=== PATIENT | female | born 1955 | race Caucasian/White ===

== ENCOUNTER → 2016-02-14 | Outpatient (REF) | payer MEDICARE ==
[2016-02-14 11:42] LABS: INR 2.2; MEAN CORPUSCULAR HEMOGLOBIN 29.2 pg (27.0-33.0); MEAN CORPUSCULAR HGB CONC 32.6 g/dl (32.0-36.5); MEAN CORPUSCULAR VOLUME 89.5 fl (80.0-96.0); RED CELL DISTRIBUTION WIDTH 14.7 % (11.5-14.5); WHITE BLOOD COUNT 4.1 K/mm3 (4.0-10.0)
[2016-02-14 11:59] LABS: CALCIUM LEVEL 8.7 MG/DL (8.8-10.2); CREATININE FOR GFR 1.36 MG/DL (0.55-1.02); GLOMERULAR FILTRATION RATE 42.2 (>45)
== END ==
LOC: M SFHCCLAY 07:11
PROVIDERS: ATTEND Family Medicine
DX: I10 Essential (primary) hypertension (principal); E78.4 Other hyperlipidemia; E03.2 Hypothyroidism due to medicaments and other exogenous substances; E55.9 Vitamin D deficiency, unspecified; Z79.01 Long term (current) use of anticoagulants

== ENCOUNTER → 2016-02-28 | Outpatient (REF) | payer MEDICARE ==
[2016-02-28 11:19] LABS: INR 2.4
== END ==
LOC: M SFHCCLAY 07:27
PROVIDERS: ATTEND Nurse Practitioner Family
DX: Z51.81 Encounter for therapeutic drug level monitoring (principal); Z79.01 Long term (current) use of anticoagulants

== ENCOUNTER → 2016-03-14 | Outpatient (REF) | payer MEDICARE ==
[2016-03-14 11:31] LABS: INR 2.34
== END ==
LOC: M SFHCCLAY 09:20
PROVIDERS: ATTEND Nurse Practitioner Family
DX: Z79.01 Long term (current) use of anticoagulants (principal); Z95.2 Presence of prosthetic heart valve

== ENCOUNTER → 2016-03-29 | Outpatient (REF) | payer MEDICARE ==
[2016-03-29 13:41] LABS: INR 3.12
== END ==
LOC: M SFHCCLAY 12:48
PROVIDERS: ATTEND Nurse Practitioner Family
DX: Z51.81 Encounter for therapeutic drug level monitoring (principal); Z79.01 Long term (current) use of anticoagulants

== ENCOUNTER → 2016-04-12 | Outpatient (REF) | payer MEDICARE ==
[2016-04-12 11:29] LABS: INR 3.85
== END ==
LOC: M SFHCCLAY 08:49
PROVIDERS: ATTEND Nurse Practitioner Family
DX: Z79.01 Long term (current) use of anticoagulants (principal)

== ENCOUNTER → 2016-04-26 | Outpatient (REF) | payer MEDICARE ==
[2016-04-26 11:32] LABS: INR 3.69
== END ==
LOC: M SFHCCLAY 09:08
PROVIDERS: ATTEND Nurse Practitioner Family
DX: Z79.01 Long term (current) use of anticoagulants (principal)

== ENCOUNTER → 2016-05-09 | Outpatient (REF) | payer MEDICARE ==
[2016-05-09 18:24] LABS: INR 4.37
== END ==
LOC: M SFHCCLAY 10:11
PROVIDERS: ATTEND Nurse Practitioner Family
DX: J32.9 Chronic sinusitis, unspecified (principal); Z51.81 Encounter for therapeutic drug level monitoring; Z79.01 Long term (current) use of anticoagulants

== ENCOUNTER → 2016-05-24 | Outpatient (REF) | payer MEDICARE ==
[2016-05-24 12:19] LABS: INR 3.95
== END ==
LOC: M SFHCCLAY 08:10
PROVIDERS: ATTEND Nurse Practitioner Family
DX: Z79.01 Long term (current) use of anticoagulants (principal)

== ENCOUNTER → 2016-06-07 | Outpatient (REF) | payer MEDICARE, SELFPAY ==
[2016-06-07 12:20] LABS: INR 2.76
== END ==
LOC: M SFHCCLAY 07:31
PROVIDERS: ATTEND Nurse Practitioner Family
DX: Z79.01 Long term (current) use of anticoagulants (principal)

== ENCOUNTER → 2016-06-12 | Outpatient (REF) | payer MEDICARE ==
[2016-06-12 11:32] LABS: MEAN CORPUSCULAR HEMOGLOBIN 29.9 pg (27.0-33.0); MEAN CORPUSCULAR HGB CONC 31.9 g/dl (32.0-36.5); MEAN CORPUSCULAR VOLUME 93.9 fl (80.0-96.0); RED CELL DISTRIBUTION WIDTH 15.6 % (11.5-14.5); WHITE BLOOD COUNT 4.3 K/mm3 (4.0-10.0)
[2016-06-12 12:15] LABS: ALBUMIN 3.9 GM/DL (3.2-5.2); ALBUMIN/GLOBULIN RATIO 1.44 (1.00-1.93); BILIRUBIN,TOTAL 0.7 MG/DL (0.2-1.0); CALCIUM LEVEL 8.7 MG/DL (8.8-10.2); CREATININE FOR GFR 1.3 MG/DL (0.55-1.02); GLOMERULAR FILTRATION RATE 44.5 (>45); PERCENT SATURATION 9.8 % (13.2-37.4); POTASSIUM SERUM 4.1 MEQ/L (3.5-5.1); TOTAL PROTEIN 6.6 GM/DL (6.4-8.2)
== END ==
LOC: M SFHCCLAY 07:09
PROVIDERS: ATTEND Nurse Practitioner Family
DX: N28.9 Disorder of kidney and ureter, unspecified (principal); I10 Essential (primary) hypertension; E78.4 Other hyperlipidemia; E03.9 Hypothyroidism, unspecified; E55.9 Vitamin D deficiency, unspecified

== ENCOUNTER → 2016-06-21 | Outpatient (REF) | payer MEDICARE ==
[2016-06-21 11:47] LABS: INR 4.97
== END ==
LOC: M SFHCCLAY 07:39
PROVIDERS: ATTEND Nurse Practitioner Family
DX: Z79.01 Long term (current) use of anticoagulants (principal)

== ENCOUNTER → 2016-07-05 | Outpatient (REF) | payer MEDICARE ==
[2016-07-05 13:38] LABS: INR 5.36
== END ==
LOC: M SFHCCLAY 07:35
PROVIDERS: ATTEND Nurse Practitioner Family
DX: Z79.01 Long term (current) use of anticoagulants (principal)

== ENCOUNTER → 2016-07-10 | Outpatient (REF) | payer MEDICARE ==
[2016-07-10 12:38] LABS: INR 1.76
== END ==
LOC: M SFHCCLAY 07:22
PROVIDERS: ATTEND Nurse Practitioner Family
DX: Z79.01 Long term (current) use of anticoagulants (principal)

== ENCOUNTER → 2016-07-18 | Outpatient (REF) | payer MEDICARE ==
[2016-07-18 12:31] LABS: ALBUMIN 3.8 GM/DL (3.2-5.2); CREATININE FOR GFR 1.22 MG/DL (0.55-1.02); GLOMERULAR FILTRATION RATE 47.9 (>45); POTASSIUM SERUM 4.2 MEQ/L (3.5-5.1)
[2016-07-18 13:47] LABS: INR 4.99
== END ==
LOC: M SFHCCLAY 07:07
PROVIDERS: ATTEND Nurse Practitioner Family
DX: Z79.01 Long term (current) use of anticoagulants (principal); I10 Essential (primary) hypertension

== ENCOUNTER → 2016-07-25 | Outpatient (REF) | payer MEDICARE ==
[2016-07-25 12:11] LABS: INR 3.31
== END ==
LOC: M SFHCCLAY 07:30
PROVIDERS: ATTEND Nurse Practitioner Family
DX: Z51.81 Encounter for therapeutic drug level monitoring (principal); Z79.01 Long term (current) use of anticoagulants

== ENCOUNTER → 2016-08-02 | Outpatient (REF) | payer MEDICARE ==
[2016-08-02 13:15] LABS: INR 4.97
== END ==
LOC: M SFHCCLAY 07:43
PROVIDERS: ATTEND Nurse Practitioner Family
DX: Z79.01 Long term (current) use of anticoagulants (principal)

== ENCOUNTER → 2016-08-16 | Outpatient (REF) | payer MEDICARE ==
[2016-08-16 12:05] LABS: INR 3.85
== END ==
LOC: M SFHCCLAY 07:32
PROVIDERS: ATTEND Nurse Practitioner Family
DX: Z79.01 Long term (current) use of anticoagulants (principal)

== ENCOUNTER → 2016-08-28 | Outpatient (CLI) | payer MEDICARE ==
[~2016-08-28] MED LIST: ISOVUE-370 76% 100ML VIAL (Q9967) As Ordered ONE
--- NOTE | 2016-08-28 11:48 | REP ---
CT of the chest with IV contrast, CT pulmonary angiography: There are no comparison studies. There are no emboli in the pulmonary trunk or central pulmonary arteries. There are no emboli in the pulmonary artery lobe or segment branches. The ascending thoracic aorta is dilated measuring up to 4.6 cm in diameter. There is aortic valve prosthesis. There are no infiltrates. No pleural effusions. There are no masses. Cardiac size is mildly enlarged. There is no pericardial effusion. Upper abdomen: There is a small volume of ascites surrounding the liver and spleen. There is a midline ventral hernia anterior to the left lobe of the liver containing a small volume of ascites. There is reflux of the intravenous contrast into the abdominal vena cava and hepatic veins. Impression: There are no pulmonary emboli. No infiltrates, effusions or masses. Cardiac size is mildly enlarged. The ascending thoracic aorta is dilated. There is a small volume of ascites surrounding the liver and spleen. There is reflux of the intravenous contrast into the abdominal vena cava and hepatic veins. There is a midline ventral hernia in the abdomen anterior to the left lobe of the liver. There is a small volume of ascites in the hernia. Signed by Usman Hernández MD 08/28/2016 11:39 A
== END ==
LOC: M RAD 10:57
PROVIDERS: ATTEND Nurse Practitioner Family
DX: R06.00 Dyspnea, unspecified (principal); J90 Pleural effusion, not elsewhere classified
CPT/HCPCS: 71275; Q9967

== ENCOUNTER → 2016-09-13 | Outpatient (REF) | payer MEDICARE ==
[2016-09-13 11:21] LABS: INR 3.29
== END ==
LOC: M SFHCCLAY 07:36
PROVIDERS: ATTEND Nurse Practitioner Family
DX: Z79.01 Long term (current) use of anticoagulants (principal)

== ENCOUNTER → 2016-09-24 | Outpatient (CLI) | payer MEDICARE ==
--- NOTE | 2016-09-24 16:10 | REP ---
Renal ultrasound: The kidneys are normal size. Right kidney measures 10.8 x 5.0 x 4.1 cm. Left kidney measures 10.9 x 4.4 x 4.4 cm. Renal cortical echogenicity is normal bilaterally. There is a 10 mm cortical cyst medially in the left kidney. There are no calculi or masses on the right on the left. There is no hydronephrosis on the right on the left. Impression: Left renal cyst. Otherwise, negative renal ultrasound. Bladder ultrasound: The distended bladder contains 130 mm of fluid. Postvoid bladder contains 40 ml of fluid. Postvoid residual is 30%. During the examination, the gallbladder is identified. Multiple gallbladder calculi are identified. The gallbladder wall is thickened measuring up to 4.8 mm. This is nonspecific and could represent inflammation or fibrosis. Signed by Usman Hernández MD 09/24/2016 04:02 P
== END ==
LOC: M RAD 14:11
PROVIDERS: ATTEND Internal Medicine Nephrology
DX: N28.1 Cyst of kidney, acquired (principal); I11.0 Hypertensive heart disease with heart failure; I50.9 Heart failure, unspecified; N18.3 Chronic kidney disease, stage 3 (moderate)

== ENCOUNTER → 2016-09-28 | Outpatient (CLI) | payer MEDICARE ==
--- NOTE | 2016-09-28 08:41 | REP ---
Abdominal right upper quadrant ultrasound: There is no Hardy's sign to transducer pressure. There are multiple gallbladder calculi. The gallbladder wall is thickened measuring up to 4.6 mm. There is no pericholecystic fluid. There is no intrahepatic biliary duct dilatation. The common duct is dilated measuring up to 10 mm. The hepatic parenchyma is heterogeneous compatible with hepato steatosis. There are no hepatic masses. The pancreas is obscured by bowel gas. The right kidney is normal size measuring 10.2 cm craniocaudad length. There is no right renal calculus, hydronephrosis, mass or cyst. There is a trace of free fluid adjacent to the liver. Impression: Cholelithiasis, gallbladder wall thickening and dilated common duct. Trace of free fluid adjacent to the liver. However, there is a negative Hardy's sign to transducer pressure. Upon review of the CT of the abdomen pelvis dated 01/18/2011, multiple gallbladder calculi were present previously. The common duct measured 8 mm in diameter. The gallbladder wall could not optimally be visualized. Signed by Usman Hernández MD 09/28/2016 08:33 A
== END ==
LOC: M RAD 07:56
PROVIDERS: ATTEND Internal Medicine Nephrology
DX: K80.80 Other cholelithiasis without obstruction (principal)

== ENCOUNTER → 2016-10-04 | Outpatient (REF) | payer MEDICARE | LOC: M SFHCCLAY 08:14 | PROVIDERS: ATTEND Nurse Practitioner Family | DX: Z79.01 Long term (current) use of anticoagulants (principal); Z53.9 Procedure and treatment not carried out, unspecified reason ==

== ENCOUNTER → 2016-10-05 | Outpatient (REF) | payer MEDICARE ==
[2016-10-05 11:33] LABS: INR 3.85
== END ==
LOC: M SFHCCLAY 07:29
PROVIDERS: ATTEND Nurse Practitioner Family
DX: Z79.01 Long term (current) use of anticoagulants (principal)

== ENCOUNTER → 2016-10-18 | Outpatient (REF) | payer MEDICARE ==
[2016-10-18 12:31] LABS: INR 3.14
== END ==
LOC: M SFHCCLAY 07:20
PROVIDERS: ATTEND Nurse Practitioner Family
DX: Z79.01 Long term (current) use of anticoagulants (principal)

== ENCOUNTER → 2016-11-02 | Outpatient (REF) | payer MEDICARE ==
[2016-11-02 11:35] LABS: MEAN CORPUSCULAR HEMOGLOBIN 29.7 pg (27.0-33.0); MEAN CORPUSCULAR HGB CONC 32.1 g/dl (32.0-36.5); MEAN CORPUSCULAR VOLUME 92.3 fl (80.0-96.0); RED CELL DISTRIBUTION WIDTH 15.8 % (11.5-14.5); RETIC HEMOGLOBIN CONTENT CHr 29.8 PG (24-36); RETICULOCYTE % 2.2 % (0.5-1.5)
[2016-11-02 11:37] LABS: VITAMIN B12 LEVEL 574 PG/ML (247-911)
[2016-11-02 11:38] LABS: FOLATE > 24.0 NG/ML (>5.4)
[2016-11-02 11:53] LABS: CHOLESTEROL LEVEL 55 MG/DL (<200); FERRITIN 78 NG/ML (8-252); PERCENT SATURATION 17.6 % (13.2-45.0); TOTAL IRON BINDING CAPACITY 493 UG/DL (250-450); TRIGLYCERIDES LEVEL 126 MG/DL (<150)
[2016-11-02 11:56] LABS: INR 6.51
== END ==
LOC: M SFHCCLAY 07:52
PROVIDERS: ATTEND Nurse Practitioner Family
DX: R79.0 Abnormal level of blood mineral (principal); E78.4 Other hyperlipidemia; E03.9 Hypothyroidism, unspecified; E55.9 Vitamin D deficiency, unspecified; I48.91 Unspecified atrial fibrillation; Z51.81 Encounter for therapeutic drug level monitoring; Z79.01 Long term (current) use of anticoagulants
CPT/HCPCS: 80061; 82306; 82607; 82728; 82746; 83550; 84443; 85027; 85046; 85610; G0463

== ENCOUNTER → 2016-11-05 | Outpatient (REF) | payer MEDICARE ==
[2016-11-05 11:53] LABS: INR 2.41
== END ==
LOC: M SFHCCLAY 07:28
PROVIDERS: ATTEND Nurse Practitioner Family
DX: Z79.01 Long term (current) use of anticoagulants (principal)

== ENCOUNTER → 2016-11-12 | Outpatient (REF) | payer MEDICARE ==
[2016-11-12 12:21] LABS: INR 4.92
== END ==
LOC: M SFHCCLAY 07:32
PROVIDERS: ATTEND Nurse Practitioner Family
DX: Z79.01 Long term (current) use of anticoagulants (principal)

== ENCOUNTER → 2016-11-29 | Outpatient (REF) | payer MEDICARE ==
[2016-11-29 11:50] LABS: INR 2.37
== END ==
LOC: M SFHCCLAY 08:01
PROVIDERS: ATTEND Nurse Practitioner Family
DX: Z51.81 Encounter for therapeutic drug level monitoring (principal); Z79.01 Long term (current) use of anticoagulants

== ENCOUNTER → 2016-12-25 | Outpatient (REF) | payer MEDICARE ==
[2016-12-25 12:14] LABS: INR 2.53
== END ==
LOC: M SFHCCLAY 08:57
PROVIDERS: ATTEND Nurse Practitioner Family
DX: Z79.01 Long term (current) use of anticoagulants (principal)

== ENCOUNTER → 2017-01-07 | Outpatient (REF) | payer MEDICARE ==
[~2017-01-07] MED LIST changes: +ALLO100T PO; +AMBI10TA PO; +ASPI81TA21 PO; +ATEN100T PO; +BUME2TAB PO; +ESTR625TA PO; +FENO160T10 PO; +FOLI1TAB4 PO; +FURO40TA2; -ISOVUE-370 76% 100ML VIAL (Q9967) As Ordered ONE; +KLON0.5T PO; +LEVO25TA5 PO; +LEVO300T21 PO; +METH5TA PO; +MONT10TA2 PO; +NORC10TA21 PO; +POTA20TA6 PO; +SPIR25TA2 PO; +VITA1CAP40 PO; +WARF-18 PO; +WARF-23 PO; +ZOLO100T PO; +ZOLP10TA2
[2017-01-07 12:13] LABS: CHOLESTEROL LEVEL 71 MG/DL (<200); FERRITIN 84 NG/ML (8-252); PERCENT SATURATION 15.1 % (13.2-45.0); TOTAL IRON BINDING CAPACITY 517 UG/DL (250-450); TRIGLYCERIDES LEVEL 151 MG/DL (<150)
[2017-01-07 12:19] LABS: MEAN CORPUSCULAR HEMOGLOBIN 29.7 pg (27.0-33.0); MEAN CORPUSCULAR HGB CONC 31.3 g/dl (32.0-36.5); MEAN CORPUSCULAR VOLUME 94.8 fl (80.0-96.0); PLATELET COUNT, AUTOMATED 151 10^3/uL (150-450); RED CELL DISTRIBUTION WIDTH 18.5 % (11.5-14.5); RETIC HEMOGLOBIN EQUIVALENT 34.4 pg (24-36); RETICULOCYTE % 2.7 % (0.5-1.5); WHITE BLOOD COUNT 4.6 10^3/uL (4.0-10.0)
[2017-01-07 13:02] LABS: FOLATE > 24.0 NG/ML (>5.4)
== END ==
LOC: M SFHCCLAY 08:16
PROVIDERS: ATTEND Nurse Practitioner Family
DX: D64.9 Anemia, unspecified (principal); E78.4 Other hyperlipidemia; E03.9 Hypothyroidism, unspecified; E55.9 Vitamin D deficiency, unspecified

== ENCOUNTER 2017-01-11 16:39 | Inpatient (IN) | payer MEDICARE ==
[~2017-01-11] VITALS: Ht 165.1 cm; Wt 79.9 kg
[2017-01-11] MEDS: MONTELUKAST 10 MG TAB PO SCH (08:52)
[2017-01-11] MEDS ORDERED: ESTR625TA PO (17:02)
[2017-01-11] MEDS ORDERED: KLON0.5T PO (17:02)
[2017-01-11] MEDS ORDERED: VITA1CAP40 PO (17:02)
[2017-01-11] MEDS ORDERED: SPIR25TA2 PO (17:02)
[2017-01-11] MEDS ORDERED: LEVO25TA5 PO (17:02)
[2017-01-11] MEDS ORDERED: ZOLO100T PO (17:02)
[2017-01-11] MEDS ORDERED: FOLI1TAB4 PO (17:02)
[2017-01-11] MEDS ORDERED: POTA20TA6 PO (17:02)
[2017-01-11] MEDS ORDERED: ALLO100T PO (17:02)
[2017-01-11] MEDS ORDERED: METH5TA PO (17:02)
[2017-01-11] MEDS ORDERED: LEVO300T21 PO (17:02)
[2017-01-11] MEDS ORDERED: BUME2TAB PO (17:02)
[2017-01-11] MEDS ORDERED: FENO160T10 PO (17:02)
[2017-01-11] MEDS ORDERED: MONT10TA2 PO (17:02)
[2017-01-11] MEDS ORDERED: WARF-23 PO (17:02)
[2017-01-11] MEDS ORDERED: AMBI10TA PO (17:02)
[2017-01-11] MEDS ORDERED: FURO40TA2 (17:02)
[2017-01-11] MEDS ORDERED: ZOLP10TA2 (17:02)
[2017-01-11] MEDS ORDERED: ATEN100T PO (17:02)
[2017-01-11] MEDS ORDERED: FUROSEMIDE 40 MG/4 ML VIAL (J1940) IV ONE (18:00)
[2017-01-11 18:31] LABS: IMMATURE GRANULOCYTE % 0.5 % (0-0); LYMPH # 0.8 10^3/uL (1.5-4.5); LYMPH % 15.3 % (24.0-44.0); MEAN CORPUSCULAR HEMOGLOBIN 29.5 pg (27.0-33.0); MEAN CORPUSCULAR HGB CONC 31.6 g/dl (32.0-36.5); MEAN CORPUSCULAR VOLUME 93.3 fl (80.0-96.0); MONO # 0.7 10^3/uL (0.0-0.8); MONO % 12.2 % (0.0-5.0); PLATELET COUNT, AUTOMATED 153 10^3/uL (150-450); RED CELL DISTRIBUTION WIDTH 18.4 % (11.5-14.5); WHITE BLOOD COUNT 5.5 10^3/uL (4.0-10.0)
--- NOTE | 2017-01-11 18:33 | REP ---
Chest one-view HISTORY: Cough Comparison: 09/04/2014 The lungs are clear. The cardiac silhouette is enlarged. The pulmonary vasculature is normal in appearance. The patient is status post aortic valve replacement. Impression: Cardiomegaly. Signed by Cayetano Villalta MD 01/11/2017 06:24 P
[2017-01-11 18:49] LABS: CALCIUM LEVEL 9.2 MG/DL (8.8-10.2); CREATININE FOR GFR 2.05 MG/DL (0.55-1.02); GLOMERULAR FILTRATION RATE 26.2 (>45); POTASSIUM SERUM 4.1 MEQ/L (3.5-5.1)
[2017-01-11 18:55] LABS: ALBUMIN 4.1 GM/DL (3.2-5.2); ALBUMIN/GLOBULIN RATIO 1.24 (1.00-1.93); BILIRUBIN,DIRECT 1.6 MG/DL (0.0-0.2); BILIRUBIN,TOTAL 2.3 MG/DL (0.2-1.0); THYROXINE (T4) 11.9 UG/DL (4.5-12.0); TOTAL PROTEIN 7.4 GM/DL (6.4-8.2)
--- NOTE | 2017-01-11 20:49 | CR ---
DATE OF CONSULTATION: 01/11/2017 REFERRING PHYSICIAN: Dr. Raya. INDICATION: Congestive heart failure, principally right-sided. HISTORY OF PRESENT ILLNESS: Mrs. Billy was referred to emergency room by Dr. Raya from his office after he discovered that she gained approximately 15 pounds in the last two weeks. The patient admits that she noticed gradually increasing edema, but she did not realize that it was as substantial as stated. She otherwise did not notice any significant change. She has been chronically short of breath which has not changed much. She has [place] Heart Association class III dyspnea. She had some occasional resting symptoms and has been using as-needed oxygen during the day and has been sleeping with oxygen during the night. She denies any chest pain, palpitations or syncope. There have not been any recent changes in her medications. The patient has a fairly extensive cardiac history. She has a history of aortic valve replacement with mechanical prosthesis in 1995; then she had a reoperation in July 2014, with bioprosthetic valve number 23, Magna Ease Valve for prosthetic valve dysfunction. She does not have established coronary artery disease. Her last cardiac catheterization was in May 2014. She does have chronic atrial fibrillation and she does have severe pulmonary hypertension. Her last echocardiogram was performed in our office in August 2016; it revealed mild left ventricular hypertrophy (LVH), left ventricular ejection fraction (LVEF) 60%. 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 There was severe pulmonary hypertension and severe tricuspid insufficiency, mildly dilated ascending aorta and normally functioning aortic bioprosthesis. PAST MEDICAL HISTORY: 1. Chronic principally right-sided congestive heart failure as above. 2. History of Graves disease, status post radiation and chronic replacement therapy. 3. Depression. 4. Hyperlipidemia. 5. Chronic renal insufficiency with baseline creatinine about 1.5 to 1.6. 6. Obesity. 7. Stp. AVR with bioprosthesis SURGICAL HISTORY: Positive for aortic valve replacement times two as above, appendectomy, oophorectomy, hysterectomy. FAMILY HISTORY: Her mother of lung cancer at the age of 72. Father had back pain. Brother and sister are relatively healthy. SOCIAL HISTORY: The patient is disabled. She is an active light smoker. She has smokes several cigarettes a week, has been trying numerous times to quit unsuccessfully. No significant alcohol use. She is . Has two sons. REVIEW OF SYSTEMS: On the review of systems, she denies any orthopnea. She admits to mild paroxysmal nocturnal dyspnea (PND). She denies any chest pain, palpitations, syncope. She is chronically tired. She does admit to weight gain but she did not realize it was as prominent. No bleeding problems. No nausea, no vomiting. No genitourinary symptoms. She reports of chronic joint pain and chronic peripheral edema that has increased recently. ALLERGIES: She has intolerance or side effects historically from LOPRESSOR, FLECAINIDE, ATIVAN and CODEINE, none of them was severe. OUTPATIENT MEDICATIONS: - ProAir - Maalox - atenolol 100 mg three times a day - Advair Diskus - aspirin 81 mg a day - Ambien 10 mg a day - Colace 100 mg as needed - Coumadin as directed - iron supplementation - fenofibrate 160 mg a day - folic acid 1 mg a day - furosemide 40 mg twice a day - Klonopin 0.5 mg as needed - levothyroxine 300 mcg once a day - methadone 5 mg one and a half tablets as directed - Nasonex - Nexium 40 a day - Premarin 0.625 mg as directed - Singulair - Zoloft - recently added spironolactone 25 mg daily PHYSICAL EXAMINATION: Mrs. Billy is an elderly woman who appears actually older than calendar age. She appears chronically but not acutely ill. Blood pressure 116/70, heart rate fluctuates between 70-110. She is afebrile. Saturation is in mid 90s on two liters of oxygen by nasal cannula. She is alert and oriented and appropriate. Does not appear to be in any distress. Her jugular venous pulse (JVP) is at least 15 cm above clavicle. Lungs are relatively clear to auscultation. I do not appreciate any crackles or rhonchi. Heart exam revealed systolic ejection murmur over the aortic valve, not very loud, maybe 2/6 intensity max. The second heart sound is clearly audible. There is also faint murmur of mitral insufficiency not very prominent, best heard over the apex. Abdomen is distended but soft, I would do not appreciate any conclusive evidence for ascites. The liver appears enlarged. There is 3+ edema to her groin. Neurologically she is intact. I do not appreciate any skin lesions. LABORATORY DATA: CBC is normal. Basic metabolic panel reveals normal sodium, potassium. Creatinine is 2.0 for GFR 26, glucose 76, mildly elevated bilirubin is 2.3, normal AST, ALT and alkaline phosphatase. Normal troponin, her N-terminal pro-BNP is 9700. TSH is 10. IMAGING: Chest x-ray reveals cardiomegaly but no obvious congestive heart failure. An ECG reveals atrial fibrillation with nonspecific IVCD. ASSESSMENT AND PLAN: Mrs. Billy is a 61-year-old lady who has multitude of problems. She has chronic atrial fibrillation. She has a history of aortic valve with replacement twice with bioprosthesis. She has mitral valve disease that is probably mild to moderate range, combined stenosis or insufficiency, and she has chronic renal insufficiency. But her dominant problem is severe pulmonary hypertension with secondary severe tricuspid regurgitation (TR) and right-sided congestive heart failure. I am not certain what is the etiology. I suspect is due to left-sided congestive heart failure, but I am not completely certain of it. In any case, I believe it is appropriate to pursue aggressive diuresis provided blood pressure tolerates. I would to administer [id number] furosemide. My starting dose is probably 40 mg every 4-6 hours, and adjust the dose accordingly depending on her response. I am suspicious that she may not tolerate this as far as the blood pressure is concerned, but I think it is equally possible that with diuresis, her blood pressure will actually improve due to relatively improved filling of left ventricle. I would provide sufficient amount of oxygen to prevent severe hypoxemia which would likely be contributing. Otherwise, her remaining issues are controlled. I spoke with the patient again and explained that the prognosis is guarded at best, and that there is no definite cure to her underlying condition. We had similar discussion in the office on several occasions and I believe that she is well aware of her poor prognosis. Management of renal issue is as per nephrology. MTDD
[2017-01-11] MEDS: zolPIDEM TARTRATE 5 MG TAB PO SCH (21:00)
[2017-01-11] MEDS: clonazePAM 0.5 MG TAB PO SCH (21:00)
[2017-01-11] MEDS ORDERED: NORCO, ANEXSIA 5/325MG TABLET (HYDROcodone/ACETAMINOPHEN) PO ONE (21:00)
[2017-01-11] MEDS ORDERED: ASPI81TA21 PO (21:24)
[2017-01-11] MEDS ORDERED: WARF-18 PO (21:24)
[2017-01-11] MEDS ORDERED: NORC10TA21 PO (21:24)
[2017-01-11] MEDS ORDERED: WARFARIN SOD 5 MG TAB PO SCH (23:30)
[2017-01-11] MEDS ORDERED: WARFARIN SOD 2.5 MG TAB PO SCH (23:30)
[2017-01-11] MEDS: FUROSEMIDE 40 MG/4 ML VIAL (J1940) IV SCH (23:38)
[2017-01-11 23:46] LABS: INR 3.92
[2017-01-12] VITALS (8 sets, daily range): BP systolic 105–139; BP diastolic 56–81; O2SAT 99
--- NOTE | 2017-01-12 00:10 | HPEPDOC ---
[facility] Medical History & Physical Date of Admission Jan 12, 2017 History and Physical PRIMARY CARE PROVIDER: Dr. Gannon ATTENDING: Dr. Cayetano Sanchez CHIEF COMPLAINT: Increased fluid retention HISTORY OF PRESENT ILLNESS: PAST MEDICAL HISTORY: As per HPI This is a 61-year-old female past medical history congestive heart failure, aortic valve replacement 2, Graves' disease status post ablation, chronic disease based on current 1.5-1.6, obesity, chronic atrial fibrillation on Coumadin, severe TR/moderate MR/MS/severe pulmonary hypertension who presents with increased fluid retention. Patient denies chest pain/palpitations. States she's been getting diuresed outpatient however has had a 15 pound weight gain over the last month and has been asked to come to the emergency department by her collections assistant. In the ED patient is volume overloaded, was evaluated by Dr. Garcia. She also appeared to have elevation of her creatinine level. She does have a complicated cardiac history, and will be diuresed accordingly. Her collections assistant is also contacted for assistance. She is currently resting comfortably in bed. Denies nausea/vomiting/abdominal pain. PAST SURGICAL HISTORY: Aortic valve replacement 2, appendectomy, Hysterectomy , cardiac cath 7 SOCIAL HISTORY: History of tobacco abuse however quit 3 years ago. Denies alcohol. and lives with . FAMILY HISTORY: Noncontributory ALLERGIES: Please see below. REVIEW OF SYSTEMS: HEENT: Denies sore throat/headache CARDIOVASCULAR: Denies chest pain/palpitations RESPIRATORY: + shortness of breath. No cough GASTROINTESTINAL: denies nausea/vomiting GENITOURINARY: Denies dysuria/urinary urgency. MUSCULOSKELETAL: Denies myalgias/arthralgias NEUROLOGICAL: Denies any focal weakness HOME MEDICATIONS: Please see below. PHYSICAL EXAMINATION: Vitals: (see below) General: No acute distress, laying comfortably in bed. HEENT: Moist mucous membranes. Neck: No JVD or lymphadenopathy Cardiac: RRR, No murmurs Pulm: Coarse crackles diminished breath sounds bilateral bases. No wheezing, rhonchi Abd: NT + BS. Mildly distended. Ext: 2+ pitting edema bilateral lower extremities. No cyanosis. LABORATORY DATA: See below. IMAGING: Chest x-ray 01/11/17 The cardiac silhouette is enlarged. The pulmonary vasculature is normal in appearance. The patient is status post aortic valve replacement. Impression: Cardiomegaly. MICROBIOLOGY: Please see below. ASSESSMENT/PLAN: 1. Acute decompensated heart failure- had been attempted to be diuresed outpatient with her collections assistant however has gained 15 pounds over the last month. Evaluated by Dr. Garcia in the ED. Denies chest pain/palpitations. Started on Lasix IV. Fluid restriction. Strict I/O. Echocardiogram pending. Cardiac enzymes trended. 2. Acute kidney injury likely secondary to decompensated heart failure- will be diuresed. Renal ultrasound. Avoid nephrotoxins. Creatinine1.5-1.6.Nephrology on consult. 3. Chronic atrial fibrillation on Coumadin. INR supratherapeutic. We will hold Coumadin for now. Consider restarting when INR is less than 3. Heart rate controlled. 4. History of Graves' disease status post ablation now on Synthroid 5. History of aortic stenosis since , status post multiple aortic valve replacement. 6. Moderate mitral regurg/stenosis, severe pulmonary hypertension, severe tricuspid regurg likely contributing to the patient's dyspnea. 7. Obesity 8. Lower extremity edema- ultrasound to rule out DVT, although patient is on Coumadin. DVT prophylaxis- on Coumadin Prognosis guarded Patient will be followed by Dr. Cayetano Sanchez starting 01/12/17 at 7 AM. Vital Signs Vital Signs Date Time Temp Pulse Resp B/P (MAP) Pulse Ox O2 Delivery O2 Flow Rate FiO2 01/11/17 22:54 90 93 01/11/17 22:10 16 01/11/17 21:54 98.7 01/11/17 21:17 116/60 (78) Laboratory Data Labs 24H Laboratory Tests 2 01/11/17 18:14: Immature Granulocyte % (Auto) 0.5H, White Blood Count 5.5, Red Blood Count 4.48 , Hemoglobin 13.2, Hematocrit 41.8, Mean Corpuscular Volume 93.3, Mean Corpuscular Hemoglobin 29.5, Mean Corpuscular Hemoglobin Concent 31.6L, Red Cell Distribution Width 18.4H, Platelet Count 153, Neutrophils (%) (Auto) 72.0H , Lymphocytes (%) (Auto) 15.3L, Monocytes (%) (Auto) 12.2H, Eosinophils (%) ( Auto) 0.0, Basophils (%) (Auto) 0.0, Neutrophils # (Auto) 4.0, Lymphocytes # ( Auto) 0.8L, Monocytes # (Auto) 0.7, Eosinophils # (Auto) 0.0, Basophils # (Auto ) 0.0, Immature Granulocyte # (Auto) 0.0, Nucleated Red Blood Cells % (auto) 0.0 , Prothrombin Time 40.4H, Prothromb Time International Ratio 3.92, Anion Gap 8, Glomerular Filtration Rate 26.2L, Blood Urea Nitrogen 40H, Creatinine 2.05H, Sodium Level 137, Potassium Level 4.1, Chloride Level 98, Carbon Dioxide Level 31, Calcium Level 9.2, Total Creatine Kinase 71, Aspartate Amino Transf (AST/ SGOT) 35, Alanine Aminotransferase (ALT/SGPT) 21, Alkaline Phosphatase 70, Total Bilirubin 2.3H, Direct Bilirubin 1.6H, Creatine Kinase MB 3.5, Creatine Kinase MB Relative Index 4.92H, Troponin I 0.03, NN-Wie-F-Type Natriuretic Peptide 9698H, Total Protein 7.4, Albumin 4.1, Albumin/Globulin Ratio 1.24, Thyroid Stimulating Hormone (TSH) 10.500H, Thyroxine (T4) 11.9 01/11/17 23:47: CBC/BMP Laboratory Tests 01/11/17 18:14 Red Blood Count 4.48, Mean Corpuscular Volume 93.3, Mean Corpuscular Hemoglobin 29.5, Mean Corpuscular Hemoglobin Concent 31.6 L, Red Cell Distribution Width 18.4 H, Neutrophils (%) (Auto) 72.0 H, Lymphocytes (%) (Auto) 15.3 L, Monocytes (%) (Auto) 12.2 H, Eosinophils (%) (Auto) 0.0, Basophils (%) (Auto) 0.0, Neutrophils # (Auto) 4.0, Lymphocytes # (Auto) 0.8 L, Monocytes # (Auto) 0.7, Eosinophils # (Auto) 0.0, Basophils # (Auto) 0.0, Calcium Level 9.2, Total Creatine Kinase 71 Home Medications Scheduled Allopurinol (Allopurinol) 100 Mg Tab, 100 MG PO DAILY Aspirin (Aspir-Low) 81 Mg Tab, 81 MG PO DAILY Atenolol (Atenolol) 100 Mg Tab, 100 MG PO TID Bumetanide (Bumetanide) 2 Mg Tab, 2 MG PO BID Clonazepam (Klonopin) 0.5 Mg Tab, 0.5 MG PO QID Conjugated Estrogens (Premarin) 0.625 Mg Tab, 0.625 MG PO DAILY Ergocalciferol (Vitamin D) 50,000 Unit Cap, 50,000 UNITS PO QWEEK TUESDAYS Fenofibrate (Fenofibrate) 160 Mg Tab, 160 MG PO QHS Folic Acid (Folic Acid) 1 Mg Tab, 1 MG PO DAILY Levothyroxine Sodium (Synthroid) 25 Mcg Tab, 25 MCG PO DAILY W/300 MCG FOR TOTAL OF 325MCG Levothyroxine Sodium (Synthroid) 300 Mcg Tab, 300 MCG PO DAILY W/25 MCG FOR TOTAL OF 325MCG Methadone HCl (Methadone HCl) 5 Mg Tab, 7.5 MG PO BID Montelukast Sodium (Montelukast Sodium) 10 Mg Tab, 10 MG PO QHS Potassium Chloride (Potassium Chloride ER) 20 Meq Tab, 20 MEQ PO QHS Sertraline Hcl (Zoloft) 100 Mg Tab, 100 MG PO DAILY Spironolactone (Spironolactone) 25 Mg Tab, 25 MG PO BID Warfarin Sod (Warfarin Sodium) 5 Mg Tab, 5 MG PO 2XW SATURDAY AND SATURDAY Warfarin Sod (Warfarin Sodium) 2.5 Mg Tab, 2.5 MG PO 5XW SAT,,SAT,SAT,SAT Zolpidem Tartrate (Ambien) 10 Mg Tab, 10 MG PO QHS Scheduled PRN Acetaminophen/Hydrocodone ([place] 10-325 mg) 1 Tab Tab, 1 TAB PO QID PRN for PAIN Allergies Coded Allergies: Metoprolol (Unverified Adverse Reaction, Intermediate, MIGRAINES, 05/15/12) Uncoded Allergies: BANDAIDS (Allergy, Unknown, 10/07/03) ENVIROMENTAL (Allergy, Unknown, 10/07/03) APOORVA DORADO MD Jan 12, 2017 00:10
[2017-01-12] MEDS: LEVOTHYROXINE 25MCG TABLET (0.025MG) PO SCH (05:30)
[2017-01-12] MEDS: LEVOTHYROXINE 150MCG TABLET (0.15MG) PO SCH (05:31)
[2017-01-12] MEDS: FUROSEMIDE 40 MG/4 ML VIAL (J1940) IV SCH ×2 (05:36→12:00)
[2017-01-12 06:56] LABS: MEAN CORPUSCULAR HEMOGLOBIN 29.6 pg (27.0-33.0); MEAN CORPUSCULAR HGB CONC 31.7 g/dl (32.0-36.5); MEAN CORPUSCULAR VOLUME 93.3 fl (80.0-96.0); PLATELET COUNT, AUTOMATED 149 10^3/uL (150-450); RED CELL DISTRIBUTION WIDTH 18.6 % (11.5-14.5); WHITE BLOOD COUNT 5.2 10^3/uL (4.0-10.0)
[2017-01-12 07:29] LABS: CALCIUM LEVEL 9.5 MG/DL (8.8-10.2); CREATININE FOR GFR 1.91 MG/DL (0.55-1.02); GLOMERULAR FILTRATION RATE 28.4 (>45); MAGNESIUM LEVEL 2.2 MG/DL (1.8-2.4); POTASSIUM SERUM 3.9 MEQ/L (3.5-5.1)
--- NOTE | 2017-01-12 08:32 | REP ---
BILATERAL LOWER EXTREMITY DUPLEX VEINS: HISTORY: Swelling. Right lower extremity: There are no filling defects in the deep venous system. The deep venous system is patent. IMPRESSION: There is no deep venous thrombosis. Left lower extremity: There are no filling defects in the deep venous system. The deep venous system is patent. IMPRESSION: There is no deep venous thrombosis. Signed by Cayetano Villalta MD 01/12/2017 09:01 A
--- NOTE | 2017-01-12 08:43 | REP ---
RENAL ULTRASOUND: HISTORY: Kidney disease. The kidneys are normal in echogenicity. The right kidney measures 6.4 cm in transverse x 4.2 cm in AP x 10.9 cm in cephalocaudal dimensions. The left kidney measures 5.1 cm in transverse x 4.5 cm in AP x 11.4 cm in cephalocaudal dimensions. There is no hydronephrosis or mass. Ascites is present. Calcifications are present in the gallbladder consistent with cholelithiasis. The common bile duct measures 8.6 mm. There are no filling defects in the urinary bladder. IMPRESSION: 1. Ascites. 2. Cholelithiasis. Signed by Cayetano Villalta MD 01/12/2017 09:01 A
[2017-01-12] MEDS: ALLOPURINOL 100 MG TAB PO SCH (09:00)
[2017-01-12] MEDS: clonazePAM 0.5 MG TAB PO SCH ×4 (09:01→21:36)
[2017-01-12] MEDS: SPIRONOLACTONE 25 MG TAB PO SCH ×2 (09:02→21:36)
[2017-01-12] MEDS: SERTRALINE 100 MG TAB PO SCH (09:02)
[2017-01-12] MEDS: FOLIC ACID 1 MG TAB PO SCH (09:02)
[2017-01-12] MEDS: ASPIRIN 81 MG ENTERIC TAB PO SCH (09:02)
[2017-01-12] MEDS: METHADONE 5 MG TAB (S0109) PO SCH ×2 (09:03→21:36)
--- NOTE | 2017-01-12 10:01 | IPNPDOC ---
Subjective Date Seen The patient was seen on 01/12/17. Subjective Chief Complaint/HPI The patient is a 61-year-old female admitted with a reason for visit of Acute Renal Failure, Heart Failure. No acute complaints, resting comfortably in chair. Denies chest pain or pressure, lightheadedness, dizziness, cough. Admits to shortness of breath on minimal exertion. States she was told she still has ~ 40lbs to diurese. Constitutional: Denies: Chills, Fever Eyes: Denies: Pain ENT: Denies: Head Aches, Dysphagia Pulmonary: Reports: Dyspnea (on mild exertion), Denies: Cough Cardiovascular: Reports: Edema (b/l LE), Denies: Chest Pain, Palpitations, Lt Headedness Gastrointestinal: Denies: Nausea, Vomiting, Abdominal Pain Musculoskeletal: Denies: Muscle Pain, Spasms Neurological: Denies: Weakness, Numbness, Incoordination Psych: Reports: Mood Normal Objective Physical Examination General Exam: Positive: Alert, Cooperative, No Acute Distress Eye Exam: Positive: Conjunctiva & lids normal, EOMI, Negative: Ptosis ENT Exam: Positive: Atraumatic Chest Exam: Positive: Clear to auscultation, Normal air movement, Negative: Rales, Rhonchi, Wheezing Heart Exam: Positive: Rate Normal, Irregular Rhythm, Normal S1, Normal S2 Abdomen Exam: Positive: Normal bowel sounds, Soft, Negative: Tenderness Extremity Exam: Positive: Clubbing (nailbeds in UE b/l, blue nailbeds), Edema ( 2+ b/l LE), Negative: Tenderness Neuro Exam: Positive: Normal Speech, Sensation Intact Psych Exam: Positive: Mental status NL, Mood NL, Oriented x 3 Assessment /Plan Assessment Acute decompensated heart failure 15lb wt gain over last month despite outpt diuresis by range mounter. BNP in 9000s on admission, cardiomegaly on CXR, cardiac enzymes negative, denies c/p or pressure continue IV Lasix, fluid restriction, Strict I/O Echocardiogram pending Cardiology consulted. Appreciate Dr. Garcia's input Acute on chronic kidney injury elevated Cr on admission, baseline ~1.5 2/2 volume overload from decompensated CHF Renal ultrasound revealed ascites IV Lasix Avoid nephrotoxins, home Bumetanide on hold Nephrology consulted. Appreciate their input Chronic atrial fibrillation on Coumadin at home. Will hold, as INR is supratherapeutic. Resume when INR below 3 Heart rate controlled, hold Atenolol on hold due to acute CHF Graves' disease s/p ablation TSH 10 on admission. No proptosis, pt denies palpitations, and myxedema is difficult to assess due to LE edema continue home 325mcg f/u outpatient with PCP Hx of congenital aortic stenosis s/p multiple aortic valve replacements moderate mitral regurg/stenosis, severe pulmonary hypertension, severe tricuspid regurg are contributing to dyspnea Lower extremity edema US negative for DVT likely 2/2 acute CHF exacerbation DVT ppx: home Coumadin on hold Plan/VTE VTE Prophylaxis Ordered?: Yes VS, I&O, 24H, Fishbone Vital Signs/I&O Vital Signs Date Time Temp Pulse Resp B/P (MAP) Pulse Ox O2 Delivery O2 Flow Rate FiO2 01/12/17 09:03 16 Room Air 01/12/17 08:00 96.7 91 136/81 (99) 93 Laboratory Data 24H LABS Laboratory Tests 2 01/11/17 18:14: Immature Granulocyte % (Auto) 0.5H, White Blood Count 5.5, Red Blood Count 4.48 , Hemoglobin 13.2, Hematocrit 41.8, Mean Corpuscular Volume 93.3, Mean Corpuscular Hemoglobin 29.5, Mean Corpuscular Hemoglobin Concent 31.6L, Red Cell Distribution Width 18.4H, Platelet Count 153, Neutrophils (%) (Auto) 72.0H , Lymphocytes (%) (Auto) 15.3L, Monocytes (%) (Auto) 12.2H, Eosinophils (%) ( Auto) 0.0, Basophils (%) (Auto) 0.0, Neutrophils # (Auto) 4.0, Lymphocytes # ( Auto) 0.8L, Monocytes # (Auto) 0.7, Eosinophils # (Auto) 0.0, Basophils # (Auto ) 0.0, Immature Granulocyte # (Auto) 0.0, Nucleated Red Blood Cells % (auto) 0.0 , Prothrombin Time 40.4H, Prothromb Time International Ratio 3.92, Anion Gap 8, Glomerular Filtration Rate 26.2L, Blood Urea Nitrogen 40H, Creatinine 2.05H, Sodium Level 137, Potassium Level 4.1, Chloride Level 98, Carbon Dioxide Level 31, Calcium Level 9.2, Total Creatine Kinase 71, Aspartate Amino Transf (AST/ SGOT) 35, Alanine Aminotransferase (ALT/SGPT) 21, Alkaline Phosphatase 70, Total Bilirubin 2.3H, Direct Bilirubin 1.6H, Creatine Kinase MB 3.5, Creatine Kinase MB Relative Index 4.92H, Troponin I 0.03, RN-Qha-K-Type Natriuretic Peptide 9698H, Total Protein 7.4, Albumin 4.1, Albumin/Globulin Ratio 1.24, Thyroid Stimulating Hormone (TSH) 10.500H, Thyroxine (T4) 11.9 01/11/17 23:47: Total Creatine Kinase 54, Creatine Kinase MB 2.6, Creatine Kinase MB Relative Index 4.81H, Troponin I 0.03 01/12/17 06:47: Nucleated Red Blood Cells % (auto) 0.0, Anion Gap 10, Glomerular Filtration Rate 28.4L, Blood Urea Nitrogen 40H, Creatinine 1.91H, Sodium Level 137, Potassium Level 3.9, Chloride Level 98, Carbon Dioxide Level 29, Calcium Level 9.5, Total Creatine Kinase 73, Creatine Kinase MB 3.2, Creatine Kinase MB Relative Index 4.38H, Troponin I 0.04#, Magnesium Level 2.2 CBC/BMP Laboratory Tests 01/11/17 18:14 Red Blood Count 4.48, Mean Corpuscular Volume 93.3, Mean Corpuscular Hemoglobin 29.5, Mean Corpuscular Hemoglobin Concent 31.6 L, Red Cell Distribution Width 18.4 H, Neutrophils (%) (Auto) 72.0 H, Lymphocytes (%) (Auto) 15.3 L, Monocytes (%) (Auto) 12.2 H, Eosinophils (%) (Auto) 0.0, Basophils (%) (Auto) 0.0, Neutrophils # (Auto) 4.0, Lymphocytes # (Auto) 0.8 L, Monocytes # (Auto) 0.7, Eosinophils # (Auto) 0.0, Basophils # (Auto) 0.0, Calcium Level 9.2, Total Creatine Kinase 71 01/12/17 06:47 Red Blood Count 4.36, Mean Corpuscular Volume 93.3, Mean Corpuscular Hemoglobin 29.6, Mean Corpuscular Hemoglobin Concent 31.7 L, Red Cell Distribution Width 18.6 H, Calcium Level 9.5 GME ATTESTATION GME ATTESTATION My faculty preceptor for this patient encounter was physically present during the encounter and was fully available. All aspects of the patient interview, examination, medical decision making process, and medical care plan development were reviewed and approved by the faculty preceptor. The faculty preceptor is aware and concurs with the plan as stated in the body of this note and will attest to such by his/her cosignature. ALVAREZ RODGERS DO Jan 12, 2017 10:01
[2017-01-12] MEDS ORDERED: SLF 3 ML SYR IV PRN (16:45)
[2017-01-12 17:06] LABS: CALCIUM LEVEL 9.3 MG/DL (8.8-10.2); CREATININE FOR GFR 1.67 MG/DL (0.55-1.02); GLOMERULAR FILTRATION RATE 33.2 (>45); POTASSIUM SERUM 3.6 MEQ/L (3.5-5.1)
[2017-01-12 17:55] LABS: MAGNESIUM LEVEL 1.9 MG/DL (1.8-2.4); PHOSPHORUS LEVEL 3.7 MG/DL (2.5-4.9)
[2017-01-12] MEDS: FUROSEMIDE injection 250 MG in D5W 225 ML IV SCH (18:25)
[2017-01-12] MEDS: zolPIDEM TARTRATE 5 MG TAB PO SCH (21:36)
[2017-01-12] MEDS: SLF 3 ML SYR IV SCH (21:37)
[2017-01-12] MEDS: MONTELUKAST 10 MG TAB PO SCH (21:37)
--- NOTE | 2017-01-12 21:40 | CR ---
DATE OF CONSULTATION: 01/12/2017 REQUESTING PHYSICIAN: Dr. Ben Shoemaker. REASON FOR CONSULTATION: Acute kidney injury (DOMI) on chronic kidney disease (CKD) stage III, with decompensated right-sided heart failure. HISTORY OF PRESENT ILLNESS: Rabia Billy is a 61-year-old female with a past medical history of CKD stage III with baseline creatinine of about 1.2 to 1.3, and right-sided congestive heart failure with severe pulmonary hypertension and severe tricuspid insufficiency with a history of aortic valve replacement with mechanical prosthesis. Also history of chronic atrial fibrillation on Coumadin, and history of Graves disease status post ablation, who was admitted with decompensated heart failure and worsening renal function. The patient was sent to the emergency room yesterday after a 15-pound weight gain was noticed by her primary motorcycle repairer, Dr. Raya. The patient complains of progressively worsening lower extremity edema which extends to the hip, and also complains of significant shortness of breath and dyspnea on exertion. She denies any active chest pain or palpitations. She states that she has been using oxygen on occasion during the daytime, and has been sleeping with oxygen as well. She notes that she is compliant with a 64-ounce fluid restriction and her oral diuretic home regimen. She has not been edema-free for over a year now, per the patient. PAST MEDICAL HISTORY: 1. CKD stage III; baseline creatinine of about 1.2 to 1.3. 2. Right-sided congestive heart failure with severe pulmonary hypertension, severe tricuspid insufficiency. 3. Aortic valve replacement with mechanical prosthesis. 4. Chronic atrial fibrillation on Coumadin. 5. Depression. 6. Dyslipidemia. 7. Obesity. 8. Graves disease, status post radiation. PAST SURGICAL HISTORY: 1. Aortic valve replacement times two. 2. Appendectomy. 3. Hysterectomy. 4. History of cardiac catheterization. SOCIAL HISTORY: Ex smoker. Denies alcohol. She is and lives with her . She has two sons. FAMILY HISTORY: No family history of renal failure. ALLERGIES: METOPROLOL, SEASONAL, and TAPE. REVIEW OF SYSTEMS: GENERAL: Denies fevers and chills. HEENT: Denies visual changes, blurring, sore throat, earache. CARDIOVASCULAR: Denies chest pain, palpitations. RESPIRATORY: +shortness of breath and dyspnea on exertion. No cough. GASTROINTESTINAL (GI): No nausea, no vomiting. GENITOURINARY: No dysuria. No urinary retention. MUSCULOSKELETAL: Denies myalgias, arthralgias. NEUROLOGIC: Denies any focal weakness. PSYCHIATRIC: Notes depression. No suicidal ideation. SKIN: Denies any rashes or pruritus. HOME MEDICATIONS: - allopurinol 100 mg by mouth daily - aspirin 81 mg by mouth daily - atenolol 100 mg by mouth three times a day - Bumex 2 mg by mouth twice a day - Klonopin 0.5 mg by mouth daily - Premarin 0.625 mg daily - vitamin D 50,000 units every week - fenofibrate 160 mg at bedtime - folic acid 1 mg by mouth daily - Synthroid 325 mcg daily - methadone 7.5 mg by mouth twice a day - montelukast 10 mg by mouth at bedtime - potassium chloride extended release 20 mEq by mouth daily - Zoloft 100 mg by mouth daily - aldactone 25 mg by mouth twice a day - Coumadin - Ambien 10 mg by mouth at bedtime OBJECTIVE: VITAL SIGNS: Temperature 98.4, pulse 85, respiratory rate 16-20, blood pressure 109/58, saturating 96% on room air. INTAKE AND OUTPUT: Urine output today 1200 mL. Weight in the bed scale 86 kg, decreased from yesterday. PHYSICAL EXAMINATION: GENERAL: The patient is seen lying in bed comfortable, in no acute respiratory distress in fair spirits. She appears older than stated age. HEAD/NECK: Extraocular muscles are intact. Oral mucosa is moist. The jugular veins are distended. LUNGS: Show symmetric air entry bilaterally. She is comfortable on room air. There is no audible crackle. CARDIAC: S1, S2. Systolic murmur. 2+ radial pulse. ABDOMEN: Soft and distended. There are bowel sounds present. There is no induration in the abdominal wall. EXTREMITIES: Lower extremities are significant for marked pitting edema present up to the hip and dependent areas. NEUROLOGIC: She is appropriately interactive and conversational. There is no focal deficit. SKIN: There is no rash. PSYCHIATRIC: Appropriate mood and affect. LABORATORY DATA: White count 5.2, hemoglobin 12.9, platelets 149. Sodium 137, potassium 3.9, bicarbonate 29, BUN 40, creatinine 1.9, glucose 74, magnesium 2.2. AST, ALT normal. BNP 9698. Albumin 4.1. IMAGING: Renal ultrasound 12/02 incidentally noted ascites. No filling defects in the urinary bladder. The right kidney is 10.9 cm and the left kidney is 11.4 cm. There is no hydronephrosis or mass. INPATIENT MEDICATIONS: - allopurinol 100 mg by mouth daily - aspirin 81 mg by mouth daily - Klonopin 0.5 mg by mouth daily - folic acid 1 mg by mouth daily - Lasix 40 mg intravenous (IV) every six - levothyroxine 325 mcg by mouth daily - methadone 7.5 mg by mouth twice a day - Singulair 10 mg by mouth at bedtime - sertraline 100 mg by mouth daily - aldactone 25 mg by mouth twice a day - Ambien 10 mg by mouth at bedtime PROBLEMS: 1. Type 2 cardiorenal syndrome in the setting of decompensated right-sided heart failure with significant volume overload. The patient has a nonoliguric acute kidney injury. Baseline creatinine is about 1.2 to 1.3, currently 1.9 in the setting of chronically decompensated right-sided heart failure. 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 Over the past several months as an outpatient, she has worsening decompensation in her volume status despite fluid restriction and dual diuretic regimen of bumetanide with aldactone. At this time, I agree with Lasix as ordered 40 mg IV every six, with spironolactone. If she develops hypotension with Lasix boluses, then I plan to switch her over to a Lasix drip at 5 mg an hour. We will see how her intake and output fare over the next 24 hours and accordingly adjust her diuretic regimen. I would hold all other antihypertensives while we are aggressively diuresing the patient at present. There is a repeat echocardiogram pending. Further management of her severe pulmonary hypertension and secondary tricuspid insufficiency is as per cardiology. 2. Chronic atrial fibrillation on Coumadin. Coumadin on hold for supratherapeutic INR. Heart rate is controlled at present without use of beta preet. 3. History of Graves disease, status post ablation, on Synthroid. 4. History of congenital aortic stenosis, status post multiple aortic valve replacements. Thank you for involving me in the care of this patient. I will be happy to follow the patient along with you. YUDELKA
[2017-01-13] VITALS: BP 121/58
[2017-01-13 04:00] VITALS: BP 98/57
[2017-01-13 04:51] LABS: MEAN CORPUSCULAR HEMOGLOBIN 29.4 pg (27.0-33.0); MEAN CORPUSCULAR HGB CONC 31.8 g/dl (32.0-36.5); MEAN CORPUSCULAR VOLUME 92.7 fl (80.0-96.0); PLATELET COUNT, AUTOMATED 119 10^3/uL (150-450); RED CELL DISTRIBUTION WIDTH 18.4 % (11.5-14.5); WHITE BLOOD COUNT 4.4 10^3/uL (4.0-10.0)
[2017-01-13 05:10] LABS: CALCIUM LEVEL 9.1 MG/DL (8.8-10.2); CREATININE FOR GFR 1.59 MG/DL (0.55-1.02); GLOMERULAR FILTRATION RATE 35.1 (>45); POTASSIUM SERUM 3.3 MEQ/L (3.5-5.1)
[2017-01-13] MEDS: SLF 3 ML SYR IV SCH ×3 (06:00→21:09)
[2017-01-13] MEDS: LEVOTHYROXINE 150MCG TABLET (0.15MG) PO SCH (06:04)
[2017-01-13] MEDS: LEVOTHYROXINE 25MCG TABLET (0.025MG) PO SCH (06:04)
[2017-01-13] MEDS ORDERED: POTASSIUM CHLORIDE 10 MEQ SR TABLET PO ONE ×2 (06:45→10:45)
[2017-01-13 08:10] VITALS: BP 124/72
--- NOTE | 2017-01-13 08:10 | IPNPDOC ---
Text Note Date of Service The patient was seen on 01/13/17. NOTE Subjective: Patient seen and examined at bedside. No acute overnight events reported. Patient has no new medical complaints. Complains of some chronic lower back pain. Objective: General: NAD, lying comfortably in bed HEENT: NC/AT Lungs: CTA B/L Heart: +S1S2, systolic murmur, irregular Abd: soft, NT, +BS Ext: B/L LE edema Psych: AAOx3 Assessment/Plan: 61 yo female for shortness of breath #Acute decompensated heart failure/right heart failure - type 2 CRS - currently on furosemide gtt - continue strict I/O's, daily weights - follow as per nephrology and cardiology - assistance appreciated #Acute on chronic kidney injury - improving - likely CRS as per above - lasix gtt - follow as per nephrology - renal US appreciated #Chronic atrial fibrillation - rate controlled - atenolol on hold - coumadin on hold - INR supratherapeutic #Graves' disease s/p ablation - TSH 10 on admission. No proptosis, pt denies palpitations, and myxedema is difficult to assess due to LE edema - continue home 325mcg - f/u outpatient with PCP #Hx of congenital aortic stenosis - s/p multiple aortic valve replacements - moderate mitral regurg/stenosis, severe pulmonary hypertension, severe tricuspid regurg are contributing to dyspnea #Lower extremity edema - US negative for DVT - likely 2/2 acute CHF exacerbation/CRS as per above DVT ppx: supratherapeutic on coumadin VS,Fishbone, I+O VS, Fishbone, I+O Laboratory Tests 01/12/17 16:07 Calcium Level 9.3 01/13/17 04:44 Calcium Level 9.1, Red Blood Count 4.11, Mean Corpuscular Volume 92.7, Mean Corpuscular Hemoglobin 29.4, Mean Corpuscular Hemoglobin Concent 31.8 L, Red Cell Distribution Width 18.4 H Vital Signs Date Time Temp Pulse Resp B/P (MAP) Pulse Ox O2 Delivery O2 Flow Rate FiO2 01/13/17 07:10 Room Air 01/13/17 04:00 98.3 104 18 98/57 (71) 95 01/13/17 00:00 2.0 BARTOLO NAYLOR MD Jan 13, 2017 08:10
[2017-01-13] MEDS: SPIRONOLACTONE 25 MG TAB PO SCH ×2 (08:41→20:40)
[2017-01-13] MEDS: clonazePAM 0.5 MG TAB PO SCH ×4 (08:42→20:40)
[2017-01-13] MEDS: SERTRALINE 100 MG TAB PO SCH (08:42)
[2017-01-13] MEDS: METHADONE 5 MG TAB (S0109) PO SCH ×2 (08:42→20:41)
[2017-01-13] MEDS: ALLOPURINOL 100 MG TAB PO SCH (08:42)
[2017-01-13] MEDS: ASPIRIN 81 MG ENTERIC TAB PO SCH (08:42)
[2017-01-13] MEDS: FOLIC ACID 1 MG TAB PO SCH (08:42)
[2017-01-13 12:00] VITALS: BP 155/82
[2017-01-13 16:00] VITALS: BP 114/73
[2017-01-13] MEDS ORDERED: [UNRECOGNIZED DRUG - OTHER] TOP PRN (17:15)
[2017-01-13] MEDS: FUROSEMIDE injection 250 MG in D5W 225 ML IV SCH (17:21)
--- NOTE | 2017-01-13 17:54 | ECGEPIP ---
Stationary ECG Study [facility] - ED Test Date: 2017-01-11 Pat Name: HERBER MASON Department: Room: - Gender: F [employer]: : 1955 Requested By: SABRINA Simpson Order Number: [id number] Reading MD: Kamran Acevedo Measurements Intervals [place] Rate: 97 P: CA: 0 QRS: 21 QRSD: 132 T: 193 QT: 403 QTc: 513 Interpretive Statements ATRIAL FIBRILLATION WITH ABERRANT CONDUCTION OR VENTRICULAR PREMATURE COMPLEXES LEFT BUNDLE BRANCH BLOCK NSTTW ABNORMALITIES NO PRIORS FOR COMPARISON Electronically Signed On 01-13-2017 17:54:05 EST by Kamran Acevedo
[2017-01-13 19:34] VITALS: BP 111/69
[2017-01-13] MEDS: zolPIDEM TARTRATE 5 MG TAB PO SCH (20:40)
[2017-01-13] MEDS: MONTELUKAST 10 MG TAB PO SCH (20:40)
[2017-01-14] VITALS (7 sets, daily range): BP systolic 94–131; BP diastolic 58–70
[2017-01-14 05:07] LABS: MEAN CORPUSCULAR HEMOGLOBIN 29.4 pg (27.0-33.0); MEAN CORPUSCULAR HGB CONC 32.1 g/dl (32.0-36.5); MEAN CORPUSCULAR VOLUME 91.5 fl (80.0-96.0); PLATELET COUNT, AUTOMATED 119 10^3/uL (150-450); RED CELL DISTRIBUTION WIDTH 18.6 % (11.5-14.5); WHITE BLOOD COUNT 4.3 10^3/uL (4.0-10.0)
[2017-01-14] MEDS: SLF 3 ML SYR IV SCH ×3 (05:14→21:40)
[2017-01-14 05:16] LABS: INR 2.47
[2017-01-14 05:26] LABS: CREATININE FOR GFR 1.37 MG/DL (0.55-1.02); GLOMERULAR FILTRATION RATE 41.7 (>45); POTASSIUM SERUM 3.4 MEQ/L (3.5-5.1)
--- NOTE | 2017-01-14 05:26 | IPN ---
DATE OF SERVICE: 01/13/2017 SUBJECTIVE: The patient is seen this morning at the bedside. She denies any acute events overnight. States she has been ambulating to the bathroom and her dyspnea on exertion is slightly improved from prior. Her renal function has improved with diuresis. VITAL SIGNS: Temperature 97.4, pulse 99, respiratory rate 18-20, blood pressure 124/72, saturating 93% on room air. Intake and output: Oral intake 720 mL, urine output 2015. Net negative 1300. Weight on the bed scale today 84 kg, reduced from prior. PHYSICAL EXAMINATION: General: The patient is seen in bed comfortable. No acute distress. Wrapped in blankets. Extraocular muscles are intact. The ears, nose and throat are unremarkable. The neck shows significant jugular venous distention. Cardiac: S1, S2, systolic murmur, irregularly irregular, 2+ radial pulse, significant pitting edema present up into the thigh and hip and dependent areas. Lungs: Clear air entry bilaterally, but diminished at base. Abdomen is soft, nontender, obese, positive bowel sounds. Extremities: Pitting edema 3+ present to the hip and the groin and the dependent area. Neurologic: She is at baseline mentation, oriented times four. Psychiatric: Appropriate mood and affect. LABORATORIES: White count 4.4, hemoglobin 12.1, platelets 119. Sodium 137, potassium 3.3, bicarbonate 30, BUN 36, creatinine 1.5, magnesium 2.0, calcium 9.1. INPATIENT MEDICATIONS: The patient continues on a Lasix drip at 5 mg/h. She received 80 mEq of potassium supplementation today. Her other medications are unchanged from prior. PROBLEMS: 1. Type 2 cardiorenal syndrome in the setting of decompensated right-sided heart failure with significant volume overload. Patient's baseline creatinine is around 1.3. Her renal function is currently improving with diuresis. 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 At this time, I will continue her on a Lasix drip at 5 mg/h with goal net negative about 2 liters per day. She also continues on oral spironolactone. She continues on oral fluid restriction. 2. Acute kidney injury (DOMI) on chronic kidney disease (CKD) stage III. Baseline creatinine 1.3. Currently with type 2 cardiorenal syndrome. Improving with diuresis. Continue Lasix drip at present time. The patient is fairly close to her baseline renal function. She has hypokalemia secondary to diuretics. Potassium is aggressively replaced. 3. Severe pulmonary hypertension and secondary tricuspid insufficiency and right-sided heart failure as per cardiology. 4. Chronic atrial fibrillation on Coumadin. The patient needs a repeat international normalized ratio (INR) check. Last INR was checked on 01/11 and her Coumadin is currently on hold as it was supratherapeutic at that time. I am ordering a repeat INR for the morning. As far as antiarrhythmics, the patient was on atenolol 100 mg three times a day at home. Currently it is held and heart rate is fairly controlled. Further management of her atrial fibrillation is as per the direction of cardiology. 5. Plan of care is discussed with Dr. Sanchez.
[2017-01-14] MEDS: LEVOTHYROXINE 150MCG TABLET (0.15MG) PO SCH (05:48)
[2017-01-14] MEDS: LEVOTHYROXINE 25MCG TABLET (0.025MG) PO SCH (05:48)
--- NOTE | 2017-01-14 07:08 | ECHO ---
DATE OF PROCEDURE: 01/12/2017 DATE OF : 1955 AGE: 61 GENDER: Female HEIGHT: 65 inches WEIGHT: 197 pounds BODY SURFACE AREA: 1.97 meters squared INPATIENT: PCU - Room 3220 REFERRING PHYSICIAN: Dr. Boo Alvarez INDICATION: Congestive heart failure. Atrial fibrillation. Bioprosthetic aortic valve. MEASUREMENTS: 2-D Measurements: RV: 5.5 cm LV: 3.7 cm Septum: 1.3 cm Posterior wall: 1.3 cm Aortic root: 3.4 cm LA: 5.8 cm LVEF 45-50% Doppler Measurements: AV: 1.9 m/s LVOT: 1.3 m/s LVOT diameter: 2.0 cm MV - E: 210 Pressure half time: 99 ms Mean MV gradient: 6.0 mmHg Mitral valve area: 2.2 square centimeters PV: 0.73 m/s Pulmonary artery acceleration time: 85 ms RVSP: At least 40 mmHg IVC: 3.1 cm COMMENTS: Underlying atrial fibrillation with adequately controlled ventricular response. Rate related left bundle branch block pattern. Prominently dilated left atrium, but normal left ventricular size. Prominently dilated right heart chambers. LV wall thickness was mildly increased symmetrically. On real-time imaging from the parasternal and projections, there was septal wall motion abnormality, but other betts appeared to move normally. Fairly severe mitral annular calcification with thickening of the mitral leaflets and reduced leaflet excursion, but no posterior systolic buckling. Echogenic bioprosthetic aortic valve with visible cusp separation. Normal aortic root size. No apparent intracardiac mass or pericardial effusion. Color flow Doppler study taken from the parasternal and apical projection showed very mild aortic bioprosthetic insufficiency with moderate mitral insufficiency and severe tricuspid insufficiency. Guided continuous wave Doppler of her aortic valve showed a normal peak systolic velocity against LV outflow tract obstruction. Pulsed and continuous wave Doppler of her mitral valve taken from the apical four-chamber projection showed an increased peak systolic velocity and abbreviated pressure half-time in keeping with a mild degree of mitral stenosis. Pulsed and continuous wave Doppler of her pulmonary trunk showed a normal peak systolic velocity against RV outflow tract obstruction. Her pulmonary artery acceleration time was abbreviated consistent with an elevated pulmonary vascular resistance. Guided continuous wave Doppler of her tricuspid valve allowed our estimation of her right ventricular systolic pressure (at least moderately increased). Her inferior vena cava was prominently dilated with absent respiratory collapse in keeping with an elevated central venous pressure. CONCLUSIONS: Appropriate function of a bioprosthetic aortic valve. 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 Normal left ventricular size with mild concentric hypertrophy and septal wall motion abnormality due to rate related left bundle branch block? versus severe right ventricular pressure overload? At least mild impairment of global resting left ventricular systolic function. Markedly dilated left atrium. Prominently dilated right heart chambers with hypokinesis and at least moderately severe pulmonary hypertension. Prominently dilated inferior vena cava with absent respiratory collapse in keeping with significantly elevated central venous pressure/right heart failure. Severe tricuspid insufficiency.
[2017-01-14] MEDS: SERTRALINE 100 MG TAB PO SCH (08:47)
[2017-01-14] MEDS: FOLIC ACID 1 MG TAB PO SCH (08:47)
[2017-01-14] MEDS: ASPIRIN 81 MG ENTERIC TAB PO SCH (08:47)
[2017-01-14] MEDS: METHADONE 5 MG TAB (S0109) PO SCH ×2 (08:47→20:21)
[2017-01-14] MEDS: clonazePAM 0.5 MG TAB PO SCH ×4 (08:47→20:13)
[2017-01-14] MEDS: SPIRONOLACTONE 25 MG TAB PO SCH ×2 (08:47→20:13)
[2017-01-14] MEDS: ALLOPURINOL 100 MG TAB PO SCH (08:48)
[2017-01-14] MEDS ORDERED: ATENOLOL 50 MG TAB PO SCH (09:00)
[2017-01-14] MEDS ORDERED: POTASSIUM CHLORIDE 10 MEQ SR TABLET PO ONE (09:00)
--- NOTE | 2017-01-14 09:08 | IPN ---
DATE: 01/14/2017 Mrs. Billy had a relatively good weekend. She was started on continuous IV Lasix drip and has accomplished significant diuresis. Simultaneously, her renal function has actually improved. She feels overall better. Her only complaint is palpitations. Her atenolol has been held and her heart rate starts to be quite tachycardiac, which is up to 130s at times Vital signs: Blood pressure 131/60, heart rate 100 teens, afebrile. Saturation 95% on room air. Her fluid balance yesterday was documented as relatively neutral but she lost 6 kg since admission according to our scales. She is already 770 mL negative today. She is alert, oriented and appropriate. Her jugular venous pressure is still at least 12 cm above clavicle. Lungs are clear to auscultation with good air movement. Heart exam reveals irregular rhythm. I do not appreciate any gallop. There is a murmur of TR that is best heard over the left sternal border. Abdomen is soft, nontender. She still has significant peripheral edema. LABORATORY: CBC: Hemoglobin 11.8, hematocrit 36.8, platelet count 119. Basic metabolic panel: Potassium 3.4, BUN 34, creatinine 1.4, GFR 41 and glucose 94. ASSESSMENT/PLAN Mrs. Rabia Billy is a 61-year-old female who has chronic atrial fibrillation and has severe pulmonary hypertension and came with principally right-sided congestive heart failure. She has been diuresed so far successfully and I will continue the trend. I am going to put her back on a reduced dose of atenolol, her standing dose is 300 mg a day and she has not received any atenolol now for 2 days and her heart rate is relatively mildly tachycardiac but because atenolol has very long half life I assume that within a day or two she will be extremely tachycardic. Consequently, I will start her only on 100 mg daily and we will adjust the dose accordingly. Her overall prognosis remains guarded, but I am pleased with the progress so far. MTDD
[2017-01-14] MEDS: POTASSIUM CHLORIDE 10 MEQ SR TABLET PO SCH (10:37)
--- NOTE | 2017-01-14 10:50 | IPNPDOC ---
Subjective Date Seen The patient was seen on 01/14/17. Subjective Chief Complaint/HPI The patient is a 61-year-old female admitted with a reason for visit of Acute Renal Failure, Heart Failure. Resting comfortably in bed. States she overall feels better and less short of breath on exertion, and noticed her LE swelling improving. Was anxious that her atenolol was held on admission, and felt her heart racing overnight, which resolved with Atenolol being resumed this am. Constitutional: Denies: Chills, Fever ENT: Denies: Dysphagia Pulmonary: Reports: Dyspnea (improving), Denies: Cough Cardiovascular: Reports: Palpitations (associated with tachycardia, and Afib), Denies: Chest Pain, Edema, Lt Headedness Gastrointestinal: Denies: Nausea, Vomiting, Abdominal Pain Neurological: Denies: Weakness, Numbness Objective Physical Examination General Exam: Positive: Alert, Cooperative, No Acute Distress Eye Exam: Positive: Conjunctiva & lids normal, EOMI, Negative: Ptosis ENT Exam: Positive: Atraumatic Chest Exam: Positive: Clear to auscultation, Normal air movement, Negative: Rales, Rhonchi, Wheezing Heart Exam: Positive: Tachycardic, Irregular Rhythm, Normal S1, Normal S2 Abdomen Exam: Positive: Normal bowel sounds, Soft, Negative: Tenderness Extremity Exam: Positive: Clubbing (clubbed nails in UE b/l, blue nailbeds), Edema (2+ b/l LE), Negative: Tenderness Neuro Exam: Positive: Normal Speech, Sensation Intact Psych Exam: Positive: Mental status NL, Mood NL, Oriented x 3 Assessment /Plan Assessment Acute decompensated heart failure/right heart failure type 2 CRS, pt feeling less dyspneic continue furosemide gtt continue strict I/O's, daily weights follow as per nephrology and cardiology - assistance appreciated Acute on chronic kidney injury improving renal US revealed ascites, likely CRS continue Lasix, follow as per nephrology Chronic atrial fibrillation rate controlled, home Atenolol resumed at [id number] dose for tachycardia Coumadin on hold - INR supratherapeutic Hypokalemia repleted yesterday. Will replete again today Graves' disease s/p ablation TSH 10 on admission. No proptosis, pt denies palpitations, and myxedema is difficult to assess due to LE edema continue home 325mcg f/u outpatient with PCP Hx of congenital aortic stenosis s/p multiple aortic valve replacements moderate mitral regurg/stenosis, severe pulmonary hypertension, severe tricuspid regurg are contributing to dyspnea Lower extremity edema improving US negative for DVT likely 2/2 acute CHF exacerbation/CRS as per above DVT ppx: supra-therapeutic on Coumadin Plan/VTE VTE Prophylaxis Ordered?: Yes VS, I&O, 24H, Fishbone Vital Signs/I&O Vital Signs Date Time Temp Pulse Resp B/P (MAP) Pulse Ox O2 Delivery O2 Flow Rate FiO2 01/14/17 05:51 131/60 (83) 01/14/17 03:50 97.9 106 18 95 Room Air 01/13/17 00:00 2.0 I&O- Last 24 Hours up to 6 AM 01/15/17 06:00 Output Total 400 ml Balance -400 ml Laboratory Data 24H LABS Laboratory Tests 2 01/14/17 04:57: Nucleated Red Blood Cells % (auto) 0.0, Prothrombin Time 27.7H, Prothromb Time International Ratio 2.47, Anion Gap 9, Glomerular Filtration Rate 41.7L, Blood Urea Nitrogen 34H, Creatinine 1.37H, Sodium Level 137, Potassium Level 3.4L, Chloride Level 98, Carbon Dioxide Level 30, Calcium Level 9.0, Magnesium Level 2.0 CBC/BMP Laboratory Tests 01/14/17 04:57 Red Blood Count 4.02, Mean Corpuscular Volume 91.5, Mean Corpuscular Hemoglobin 29.4, Mean Corpuscular Hemoglobin Concent 32.1, Red Cell Distribution Width 18.6 H, Calcium Level 9.0 GME ATTESTATION GME ATTESTATION My faculty preceptor for this patient encounter was physically present during the encounter and was fully available. All aspects of the patient interview, examination, medical decision making process, and medical care plan development were reviewed and approved by the faculty preceptor. The faculty preceptor is aware and concurs with the plan as stated in the body of this note and will attest to such by his/her cosignature. ALVAREZ RODGERS DO Jan 14, 2017 08:45
[2017-01-14] MEDS ORDERED: CHLOROTHIAZIDE 500 MG VIAL (J1205) IV ONE (12:00)
[2017-01-14] MEDS: FUROSEMIDE injection 250 MG in D5W 225 ML IV SCH (17:15)
[2017-01-14] MEDS: zolPIDEM TARTRATE 5 MG TAB PO SCH (20:13)
[2017-01-14] MEDS: MONTELUKAST 10 MG TAB PO SCH (20:13)
[2017-01-15] VITALS (7 sets, daily range): BP systolic 101–179; BP diastolic 55–84
--- NOTE | 2017-01-15 02:38 | IPN ---
DATE OF SERVICE: 01/14/2017 SUBJECTIVE: The patient is seen this morning at the bedside. She denies any acute events overnight. States that she has been feeling palpitation like fluttering in her chest and is resumed on atenolol by cardiology. She states she is ambulating to the bathroom and her dyspnea on exertion has improved from prior. She continues with oral fluid restriction. Vital signs: Temperature 97.7, pulse 98, respiratory rate 20, blood pressure 105/70, saturating 97% on room air. Intake and output: Oral intake yesterday 1460, urine output 1600. Net equivalent fluid balance. Weight on the bed scale today is 83 kg. General: The patient is seen sitting up in bed comfortable, in no acute distress, in good spirits. Head and neck: Extraocular muscles are intact. The oral mucosa is moist. The neck is supple. Jugular veins are markedly elevated. Cardiac: S1, S2, irregularly irregular, mild tachycardia, systolic murmur, 3+ pitting edema in the bilateral lower extremities that extends up to the thigh, hip, dependent areas. Lungs: Fairly clear on auscultation, comfortable on room air. The abdomen is soft, obese, nontender, positive bowel sounds. Extremities: Bilateral pitting edema present to the thighs and dependent area, 3+. Neurologic: She is at her baseline mentation, no focal deficits. Psychiatric: Appropriate mood and affect. Skin is warm, no rash or ulcer. LABORATORIES: White count 4.3, hemoglobin 11.8, platelets 119. Sodium 137, potassium 3.4, bicarbonate 30, BUN 34, creatinine 1.3, glucose 94, calcium 9, magnesium 2. INPATIENT MEDICATIONS: I have increased the patient's Lasix drip to 7 mg/h and I have given her a one-time dose of IV Diuril 250 mg. We are aggressively repleting her potassium. She received 80 mEq of potassium this morning and is started on 40 mEq by mouth daily. Dr. Garcia started her on atenolol 100 mg by mouth daily. There is no other significant change in her medications. PROBLEMS: 1. Type 2 cardiorenal syndrome in the setting of decompensated right-sided heart failure with significant volume overload. The patient was in equivalent fluid balance the past 24 hours. Her renal function has returned to her baseline. I am increasing her diuretic regimen. Lasix drip is increased to 7 mg/h. She will also receive a dose of IV Diuril this afternoon for sequential nephron blockade. Goal net negative 2-3 liters daily. She also continues on oral spironolactone and fluid restriction. 2. Acute kidney injury (DOMI) on chronic kidney disease (CKD) stage III. The patient has returned to her baseline renal function. This is likely a type 2 cardiorenal syndrome with congestive nephropathy, which is improving with diuresis. We will continue with Lasix drip and Diuril at this time. She has hypokalemia second to diuretics and her electrolytes are being aggressively replaced. 3. Severe pulmonary hypertension and tricuspid insufficiency and right-sided heart failure. The patient's underlying issues are her severe pulmonary hypertension and right-sided heart failure. Chronic management of this is as per cardiology. 4. Chronic atrial fibrillation on Coumadin. The patient's international normalized ratio (INR) is currently therapeutic. She has been tachycardic and continues in atrial fibrillation. She is resumed on atenolol at this time. Her home regimen is atenolol 100 mg three times a day. At present, she is on once daily. Her mean arterial pressures (MAPs) have been above 70, which is favorable given the aggressive diuresis.
[2017-01-15] MEDS: LEVOTHYROXINE 150MCG TABLET (0.15MG) PO SCH (05:25)
[2017-01-15] MEDS: LEVOTHYROXINE 25MCG TABLET (0.025MG) PO SCH (05:25)
[2017-01-15 05:33] LABS: MEAN CORPUSCULAR HEMOGLOBIN 29.5 pg (27.0-33.0); MEAN CORPUSCULAR HGB CONC 31.3 g/dl (32.0-36.5); MEAN CORPUSCULAR VOLUME 94.1 fl (80.0-96.0); PLATELET COUNT, AUTOMATED 113 10^3/uL (150-450); RED CELL DISTRIBUTION WIDTH 18.6 % (11.5-14.5); WHITE BLOOD COUNT 4.6 10^3/uL (4.0-10.0)
[2017-01-15] MEDS: SLF 3 ML SYR IV SCH ×3 (05:34→22:00)
[2017-01-15 05:44] LABS: INR 1.75
[2017-01-15 05:47] LABS: CALCIUM LEVEL 9.7 MG/DL (8.8-10.2); CREATININE FOR GFR 1.45 MG/DL (0.55-1.02); GLOMERULAR FILTRATION RATE 39.1 (>45); MAGNESIUM LEVEL 2.1 MG/DL (1.8-2.4); POTASSIUM SERUM 4.1 MEQ/L (3.5-5.1)
[2017-01-15] MEDS: SERTRALINE 100 MG TAB PO SCH (08:57)
[2017-01-15] MEDS: FOLIC ACID 1 MG TAB PO SCH (08:57)
[2017-01-15] MEDS: POTASSIUM CHLORIDE 10 MEQ SR TABLET PO SCH (08:57)
[2017-01-15] MEDS: SPIRONOLACTONE 25 MG TAB PO SCH ×2 (08:57→21:38)
[2017-01-15] MEDS: ALLOPURINOL 100 MG TAB PO SCH (08:57)
[2017-01-15] MEDS: ASPIRIN 81 MG ENTERIC TAB PO SCH (08:57)
[2017-01-15] MEDS: clonazePAM 0.5 MG TAB PO SCH ×4 (08:57→21:37)
[2017-01-15] MEDS: METHADONE 5 MG TAB (S0109) PO SCH ×2 (08:58→21:44)
[2017-01-15] MEDS: ATENOLOL 50 MG TAB PO SCH ×2 (09:02→21:37)
--- NOTE | 2017-01-15 09:16 | IPN ---
DATE: 01/15/2017 Mrs. Billy is feeling better today, she said that she had a pretty good night other than still having some sensation of tachycardia. She has been diuresing successfully and her breathing improves. Blood pressure 101/69. Heart rate has been mostly in the 100s. She is afebrile. Saturation 94% on room air. Her fluid balance yesterday was documented at negative 2400, even though her weight is actually up since yesterday 83.7. She is alert and oriented and appropriate. Her jugular venous pulse (JVP) is still very high with very prominent V-waves. Lungs are clear to auscultation. Heart exam reveals irregular rhythm and there is a murmur best heard at the left lower sternal border that is systolic and likely representing TR. Abdomen is soft. The peripheral edema is much improved but still 1 to 2+. LABORATORY DATA: CBC is normal other than platelets 113. Basic metabolic panel potassium 4.1, BUN 29, creatinine 1.5 for GFR 39 and glucose is 95. ASSESSMENT/PLAN: Mrs. Billy is a 61-year-old female who has chronic atrial fibrillation, history of aortic valve replacement with bioprosthesis and severe pulmonary hypertension with secondary severe tricuspid insufficiency. She presented with very prominent right-sided congestive heart failure and so far has been diuresing successfully, I believe that we can continue the current management. I think that she is approaching euvolemic state and probably will be able to be discharged within 1 or 2 days. She is chronically anticoagulated. I am going to advance the dose of atenolol again because her rate is still not well controlled but is improved.
[2017-01-15] MEDS: AcetaZOLAMIDE 500MG INJECTION (J1120) IV SCH ×2 (11:47→21:37)
[2017-01-15] MEDS: WARFARIN SOD 2.5 MG TAB PO SCH (17:01)
[2017-01-15] MEDS: NORCO, ANEXSIA 5/325MG TABLET (HYDROcodone/ACETAMINOPHEN) PO PRN ×2 (17:02→21:52)
--- NOTE | 2017-01-15 17:56 | IPN ---
DATE: 01/15/2017 SUBJECTIVE: The patient is seen this morning at the bedside, sitting up at the edge of the bed, comfortable, in good spirits. She reports that she has been ambulating and has been feeling more comfortable from a respiratory point of view. She has sensation of palpitations and her atenolol was increased to twice a day. General: The patient is sitting up in the bed, awake, alert, pleasant and conversational, in good spirits. Her extraocular muscles are intact. Her oral mucosa is moist. Her neck is supple. Her jugular venous pulse is markedly elevated. Lungs are fairly clear to auscultation. Cardiac: S1, S2, irregularly irregular with a systolic murmur and mildly tachycardic, 2+ radial pulse. The abdomen is soft, obese, nontender, positive bowel sounds. The lower extremities are significant for pitting edema that extends up to the thigh and dependent areas and is still 2+ but improved from prior. Neurologic: She is at her baseline mentation. No issues. No focal deficits. Psychiatric: Appropriate mood and affect. Skin: Warm. No rashes. LABORATORY DATA: White count 4.6, hemoglobin 12.6, platelets 113. Sodium 137, potassium 4.1, bicarbonate 36, BUN 29, creatinine 1.4, glucose 95, magnesium 2.1. INPATIENT MEDICATIONS: Reviewed by myself. Her atenolol was increased to 100 mg by mouth twice a day per Dr. Garcia. I have continued her on a Lasix drip at 7 mg/h and added Diamox 250 mg IV twice a day for two doses. She is resumed on Coumadin. Remainder of medications are unchanged from prior. PROBLEMS: 1. Type 2 cardiorenal syndrome in the setting of decompensated right-sided heart failure with significant volume overload. The patient has been responding to diuresis well. She does have a developing alkalosis. I am going to continue her on Lasix drip at 7 mg/h and opt for Diamox for sequential nephron blockade and for bicarbonate diuresis. She also continues on oral spironolactone and fluid restriction. She has had mild fluctuations in renal function with aggressive diuresis. 2. Hypokalemia. The patient's electrolytes are being aggressively repleated. Potassium is 4.1 today. She continues on daily supplementation and spironolactone for its potassium sparing effects. 3. Chronic atrial fibrillation. The patient is resumed on Coumadin. She has been tachycardic and is on atenolol. Her dose has been increased to 100 mg by mouth twice a day. Her mean arterial pressures (MAPs) remain above 70 which is favorable given the aggressive diuresis. I would not want her to have any concurrent hypotension while we are aggressively diuresing her as that can cause acute kidney injury (DOMI).
[2017-01-15] MEDS: FUROSEMIDE injection 250 MG in D5W 225 ML IV SCH (18:19)
[2017-01-15] MEDS: MONTELUKAST 10 MG TAB PO SCH (21:38)
[2017-01-15] MEDS: zolPIDEM TARTRATE 5 MG TAB PO SCH (21:38)
[2017-01-16] VITALS: BP 94/55
--- NOTE | 2017-01-16 01:33 | IPNPDOC ---
Subjective Date Seen The patient was seen on 01/15/17. Subjective Chief Complaint/HPI The patient is a 61-year-old female admitted with a reason for visit of Acute Renal Failure, Heart Failure. Events since last encounter Patient wishes to resume her home [place], as she has reported pain consistently 7 /10 during her stay here. She continues to diurese with cardiology and nephrology. She has bouts of RVR, and her beta-preet was increased. Constitutional: Denies: Chills, Fever Pulmonary: Reports: Dyspnea (mild), Denies: Cough Cardiovascular: Reports: Palpitations, Edema, Denies: Chest Pain Gastrointestinal: Denies: Nausea, Vomiting, Diarrhea, Constipation Genitourinary: Reports: Frequency, Denies: Dysuria Objective Physical Examination General Exam: Positive: Alert, Cooperative, No Acute Distress Eye Exam: Positive: Conjunctiva & lids normal, EOMI, Negative: Ptosis ENT Exam: Positive: Atraumatic Chest Exam: Positive: Clear to auscultation, Normal air movement, Negative: Rales, Rhonchi, Wheezing Heart Exam: Positive: Tachycardic, Irregular Rhythm, Normal S1, Normal S2 Abdomen Exam: Positive: Normal bowel sounds, Soft, Negative: Tenderness Extremity Exam: Positive: Clubbing (clubbed nails in UE b/l, blue nailbeds), Edema (2+ b/l LE to knees), Negative: Tenderness Neuro Exam: Positive: Normal Speech, Sensation Intact Psych Exam: Positive: Mental status NL, Mood NL, Oriented x 3 Assessment /Plan Problems (1) Right-sided congestive heart failure Problem Text: Acute on chronic. Follows with cardiology. Diuresing per recommendations of cardiology and nephrology. Improving, approaching euvolemia. (2) Graves' disease Problem Text: S/p ablation, on levothyroxine. Will require outpt follow up to determine if appropriately replaced when she is not acutely ill. (3) Atrial fibrillation Problem Text: With RVR. Beta preet dose increased to better control. Warfarin restarted. (4) Moderate to severe pulmonary hypertension Problem Text: with R sided CHF. (5) Congenital aortic stenosis Problem Text: S/p surgical repair. (6) Acute renal failure Status: Acute Problem Text: Improving. Followed by nephrology. (7) Chronic pain Problem Text: Confirmed home medication regiment, and restarted [place]. Plan/VTE VTE Prophylaxis Ordered?: Yes VS, I&O, 24H, Fishbone Vital Signs/I&O Vital Signs Date Time Temp Pulse Resp B/P (MAP) Pulse Ox O2 Delivery O2 Flow Rate FiO2 01/16/17 00:00 98.2 65 18 94/55 (68) 93 Room Air 01/13/17 00:00 2.0 Laboratory Data 24H LABS Laboratory Tests 2 01/15/17 05:15: Nucleated Red Blood Cells % (auto) 0.0, Prothrombin Time 20.9H, Prothromb Time International Ratio 1.75, Anion Gap 6L, Glomerular Filtration Rate 39.1L, Blood Urea Nitrogen 29H, Creatinine 1.45H, Sodium Level 137, Potassium Level 4.1#, Chloride Level 95L, Carbon Dioxide Level 36H, Calcium Level 9.7, Magnesium Level 2.1 CBC/BMP Laboratory Tests 01/15/17 05:15 Red Blood Count 4.27, Mean Corpuscular Volume 94.1, Mean Corpuscular Hemoglobin 29.5, Mean Corpuscular Hemoglobin Concent 31.3 L, Red Cell Distribution Width 18.6 H, Calcium Level 9.7 TOMAS RECIO DO Jan 16, 2017 01:33
[2017-01-16] MEDS: LEVOTHYROXINE 25MCG TABLET (0.025MG) PO SCH (05:34)
[2017-01-16] MEDS: NORCO, ANEXSIA 5/325MG TABLET (HYDROcodone/ACETAMINOPHEN) PO PRN ×3 (05:34→20:54)
[2017-01-16] MEDS: LEVOTHYROXINE 150MCG TABLET (0.15MG) PO SCH (05:34)
[2017-01-16] MEDS: SLF 3 ML SYR IV SCH ×3 (05:36→21:26)
[2017-01-16 05:59] LABS: MEAN CORPUSCULAR HEMOGLOBIN 29.6 pg (27.0-33.0); MEAN CORPUSCULAR HGB CONC 31.9 g/dl (32.0-36.5); MEAN CORPUSCULAR VOLUME 92.6 fl (80.0-96.0); RED CELL DISTRIBUTION WIDTH 18.6 % (11.5-14.5); WHITE BLOOD COUNT 4.3 10^3/uL (4.0-10.0)
[2017-01-16 06:01] LABS: PLATELET COUNT, AUTOMATED 86 10^3/uL (150-450)
[2017-01-16 06:18] LABS: CALCIUM LEVEL 9.3 MG/DL (8.8-10.2); CREATININE FOR GFR 1.49 MG/DL (0.55-1.02); GLOMERULAR FILTRATION RATE 37.9 (>45); INR 1.71; MAGNESIUM LEVEL 2.1 MG/DL (1.8-2.4); POTASSIUM SERUM 3.4 MEQ/L (3.5-5.1)
[2017-01-16 08:23] VITALS: BP 104/64
--- NOTE | 2017-01-16 09:31 | IPN ---
DATE: 01/16/2017 Mrs. Billy seems rather optimistic today. She feels better and she is excited about her fluid loss. She ambulated on the progressive care unit (PCU) and even did some stairs yesterday and she said that she did much better than in a long time. Vital signs this morning: Blood pressure 104/64. Heart rate in 70s. She is afebrile. Saturation 98% on room air. Fluid balance was about 3 liters negative yesterday. It has been slightly negative today as well. Weight is 80.1 kg. She is alert , oriented and appropriate. Her jugular venous pulse (JVP) is still very high, at least 10-12 cm with very prominent V-waves. Lungs are clear to auscultation. Heart exam reveals an irregular rhythm. There is a blowing murmur best heard left of lower sternal border probably representing TR. Abdomen is soft and I do not appreciate any evidence for ascites. She still has peripheral edema, but it is improving every day LABORATORY DATA: Hemoglobin 12, hematocrit 36, platelet count down to only 86,000, which is from a starting platelet count of 153,000. Basic metabolic panel with potassium 3.4, BUN 27, creatinine 1.5 for GFR 39 and her INR is 1.7. ASSESSMENT/PLAN: Mrs. Billy is a 61-year-old female who has a history of aortic valve replacement times two, chronic atrial fibrillation, and most importantly as of lately severe pulmonary hypertension with right-sided congestive heart failure. A complicating issue is renal failure. She was admitted with a grossly volume overloaded state with IV furosemide, She had a very good diuretic response and she is down almost 10 kg. I do believe that she is still volume overloaded and if possible I would encourage further diuresis. The diuretics are being monitored by the nephrology service. My recommendation would be to discharge the patient home on torsemide rather than furosemide because she probably has a lot of retention in her abdomen, at which point, the furosemide may lose its effectiveness, but I still would encourage IV diuretics and try to keep her as "dry" as possible before discharge.
[2017-01-16] MEDS: SPIRONOLACTONE 25 MG TAB PO SCH ×2 (09:58→20:55)
[2017-01-16] MEDS: ASPIRIN 81 MG ENTERIC TAB PO SCH (09:59)
[2017-01-16] MEDS: SERTRALINE 100 MG TAB PO SCH (09:59)
[2017-01-16] MEDS: FOLIC ACID 1 MG TAB PO SCH (09:59)
[2017-01-16] MEDS: POTASSIUM CHLORIDE 10 MEQ SR TABLET PO SCH (09:59)
[2017-01-16] MEDS: clonazePAM 0.5 MG TAB PO SCH ×4 (09:59→20:53)
[2017-01-16] MEDS: ALLOPURINOL 100 MG TAB PO SCH (10:00)
[2017-01-16] MEDS: ATENOLOL 50 MG TAB PO SCH ×2 (10:01→20:54)
[2017-01-16] MEDS: AcetaZOLAMIDE 500MG INJECTION (J1120) IV SCH ×2 (10:38→20:58)
[2017-01-16] MEDS: METHADONE 5 MG TAB (S0109) PO SCH ×2 (10:38→20:55)
--- NOTE | 2017-01-16 11:21 | IPNPDOC ---
Subjective Date Seen The patient was seen on 01/16/17. Subjective Chief Complaint/HPI The patient is a 61-year-old female admitted with a reason for visit of Acute Renal Failure, Heart Failure. Events since last encounter Patient reports that she is feeling much better today, though she does not quite feel she is ready to go home yet. She does not have any concerns today. Constitutional: Denies: Chills, Fever Pulmonary: Reports: Dyspnea (occasional shortness of breath, currently using O2 at night) Cardiovascular: Denies: Chest Pain Objective Physical Examination General Exam: Positive: Alert, Cooperative, No Acute Distress Chest Exam: Positive: Clear to auscultation, Normal air movement, Negative: Rales, Rhonchi, Wheezing Heart Exam: Positive: Rate Normal, Irregular Rhythm, Normal S1, Normal S2 Telemetry: Positive: Atrial fibrillation Abdomen Exam: Positive: Normal bowel sounds, Soft, Negative: Tenderness, Hepatospenomegaly Extremity Exam: Positive: Edema (to level of [place]) Assessment /Plan Problems (1) Right-sided congestive heart failure Problem Text: 01/15: Acute on chronic. Follows with cardiology. Diuresing per recommendations of cardiology and nephrology. Improving, approaching euvolemia. (2) Graves' disease Problem Text: S/p ablation, on levothyroxine. Will require outpt follow up to determine if appropriately replaced when she is not acutely ill. (3) Atrial fibrillation Problem Text: 01/16: INR of 1.71 today, continue with Coumadin, continue to monitor 01/15: With RVR. Beta preet dose increased to better control. Warfarin restarted. (4) Moderate to severe pulmonary hypertension Problem Text: with R sided CHF. (5) Congenital aortic stenosis Problem Text: S/p surgical repair. (6) Acute renal failure Status: Acute Problem Text: Improving. Followed by nephrology. (7) Chronic pain Problem Text: Confirmed home medication regiment, and restarted [place]. Plan/VTE VTE Prophylaxis Ordered?: Yes VS, I&O, 24H, Fishbone Vital Signs/I&O Vital Signs Date Time Temp Pulse Resp B/P (MAP) Pulse Ox O2 Delivery O2 Flow Rate FiO2 01/16/17 10:39 18 01/16/17 10:01 78 104/64 01/16/17 09:25 Room Air 01/16/17 08:23 97.1 98 12/3/17 00:00 2.0 I&O- Last 24 Hours up to 6 AM 01/17/17 06:00 Intake Total 120 ml Output Total 0 ml Balance 120 ml Laboratory Data 24H LABS Laboratory Tests 2 01/16/17 05:30: Nucleated Red Blood Cells % (auto) 0.0, Immature Platelet Fraction 5.0, Prothrombin Time 20.6H, Prothromb Time International Ratio 1.71, Anion Gap 8, Glomerular Filtration Rate 37.9L, Blood Urea Nitrogen 27H, Creatinine 1.49H, Sodium Level 137, Potassium Level 3.4L, Chloride Level 96L, Carbon Dioxide Level 33H, Calcium Level 9.3, Magnesium Level 2.1 CBC/BMP Laboratory Tests 01/16/17 05:30 Red Blood Count 4.06, Mean Corpuscular Volume 92.6, Mean Corpuscular Hemoglobin 29.6, Mean Corpuscular Hemoglobin Concent 31.9 L, Red Cell Distribution Width 18.6 H, Calcium Level 9.3 GME ATTESTATION GME ATTESTATION My faculty preceptor for this patient encounter was physically present during the encounter and was fully available. All aspects of the patient interview, examination, medical decision making process, and medical care plan development were reviewed and approved by the faculty preceptor. The faculty preceptor is aware and concurs with the plan as stated in the body of this note and will attest to such by his/her cosignature. JUAN MIGUEL AMATO DO Jan 16, 2017 11:21
[2017-01-16 11:39] VITALS: BP 93/54
[2017-01-16] MEDS: FUROSEMIDE injection 250 MG in D5W 225 ML IV SCH (12:24)
[2017-01-16 15:26] VITALS: BP 93/60
[2017-01-16] MEDS ORDERED: POTASSIUM CHLORIDE 10 MEQ SR TABLET PO ONE (17:30)
[2017-01-16] MEDS: WARFARIN SOD 2.5 MG TAB PO SCH (17:35)
--- NOTE | 2017-01-16 17:52 | IPN ---
DATE: 01/15/2017 SUBJECTIVE: The patient is seen this morning at the bedside. She reports that she ambulated and climbed up a few steps and was pleasantly surprised to see her improvement in exercise tolerance and reduction in dyspnea on exertion. She denies any complaints. States her palpitations have improved with atenolol. VITAL SIGNS: Temperature 98.8, pulse 74, respiratory rate 18, blood pressure 93/54, saturating 95% on room air. Intake and output: Oral intake yesterday 1440, urine output 4800 mL, net negative 3240. Weight in the bed scale today is 80.1 kg. GENERAL: The patient is seen sitting up in bed comfortable in no acute distress. Extraocular muscles are intact. The tongue is moist. The jugular veins are elevated. CARDIAC: S1, S2, irregularly irregular. Systolic murmur. Radial pulse 2+. There is pitting edema present in the lower extremities up to the thigh and hip It is improved from prior. LUNGS: Clear to auscultation bilaterally. She is comfortable on room air. ABDOMEN: Soft, obese, nontender. Positive bowel sounds. NEUROLOGIC: She is at her baseline mentation. No issues. PSYCHIATRIC: Appropriate mood and affect. LABORATORY DATA: White count 4.3, hemoglobin 12, potassium 3.4, bicarbonate 33, BUN 27, creatinine 1.4, magnesium 2.1. INPATIENT MEDICATIONS: Patient is continued on Lasix drip at 7 mg an hour, Diamox 250 IV twice a day. I have reduced her Aldactone to 12.5 mg twice a day. Remainder of medications are unchanged from prior. PROBLEMS: 1. Type 2 cardiorenal in the setting of decompensated right-sided heart failure with significant volume overload. The patient continues to respond very well to diuretics. I held her Lasix drip overnight, as she had made close to 5 liters of urine at that point. This morning her Lasix drip is resumed at 7 mg an hour. She as well continues on Diamox for sequential nephron blockade and for bicarbonaturesis. In view of her borderline blood pressure, I have reduced her spironolactone dose. Overall, I am pleased with her fairly stable kidney function despite aggressive diuresis. 2. Borderline blood pressure. Patient's systolic is in the 90s. In view of this, I will keep her on Lasix drip as opposed to Lasix bolus. I have also reduced her spironolactone to 12.5 mg twice a day. She continues on atenolol 100 twice a day for her chronic atrial fibrillation. As an outpatient, borderline hypotension complicated the patient's ability to diurese. 3. Hypokalemia. The patient continues on daily potassium supplementation and spironolactone for its potassium-sparing effects. 4. Chronic atrial fibrillation. The patient continues on Coumadin and atenolol 100 twice a day. She has some borderline blood pressures, and her spironolactone is reduced as mentioned above. DISPOSITION: The patient will probably require another 2 days of IV diuretics for further correction of her volume status.
[2017-01-16 20:00] VITALS: BP 110/57
[2017-01-16] MEDS: zolPIDEM TARTRATE 5 MG TAB PO SCH (20:54)
[2017-01-16] MEDS: MONTELUKAST 10 MG TAB PO SCH (20:55)
[2017-01-16 23:59] VITALS: BP 93/52
[2017-01-17] VITALS (7 sets, daily range): BP systolic 96–136; BP diastolic 54–71
[2017-01-17] MEDS: LEVOTHYROXINE 25MCG TABLET (0.025MG) PO SCH (05:11)
[2017-01-17] MEDS: NORCO, ANEXSIA 5/325MG TABLET (HYDROcodone/ACETAMINOPHEN) PO PRN (05:12)
[2017-01-17] MEDS: LEVOTHYROXINE 150MCG TABLET (0.15MG) PO SCH (05:12)
[2017-01-17] MEDS: SLF 3 ML SYR IV SCH ×3 (05:45→21:24)
[2017-01-17 05:59] LABS: MEAN CORPUSCULAR HEMOGLOBIN 29.5 pg (27.0-33.0); MEAN CORPUSCULAR HGB CONC 31.6 g/dl (32.0-36.5); MEAN CORPUSCULAR VOLUME 93.4 fl (80.0-96.0); PLATELET COUNT, AUTOMATED 100 10^3/uL (150-450); RED CELL DISTRIBUTION WIDTH 18.5 % (11.5-14.5); WHITE BLOOD COUNT 4.4 10^3/uL (4.0-10.0)
[2017-01-17 06:07] LABS: INR 1.65
[2017-01-17 06:16] LABS: CALCIUM LEVEL 9.8 MG/DL (8.8-10.2); CREATININE FOR GFR 1.58 MG/DL (0.55-1.02); GLOMERULAR FILTRATION RATE 35.4 (>45); MAGNESIUM LEVEL 2.3 MG/DL (1.8-2.4); POTASSIUM SERUM 3.8 MEQ/L (3.5-5.1)
--- NOTE | 2017-01-17 08:18 | IPN ---
DATE: 01/17/2017 Mrs. Billy feels good. She again ambulated yesterday and tells me that she felt it was very successful. She feels quite comfortable at rest. Her fluid balance yesterday again was quite negative about 1200 balance. Documented weight is 79.6 kg, which is almost exactly 10 kg down since her admission. Vital signs reveal blood pressure 101/64. Heart rate has been mostly in 80s and 90s, atrial fibrillation. Saturation 96% on room air. Weight is 79.6 kg. Her jugular venous pulse (JVP) is still very high with very prominent V-waves, but I can already see the upper edge of JVP pressure, which was not the case on admission. Lungs are clear to auscultation. Heart exam reveals irregular rhythm. There is a murmur close to the left lower sternum, almost certainly representing tricuspid regurgitation (TR). Abdomen is soft. There is still peripheral edema at least to the level of the knees, but improving every day. LABORATORY DATA: Hemoglobin 12, hematocrit 38, platelet count 100. Basic metabolic panel - potassium 3.8, BUN 29, creatinine 1.6 for a GFR of 35 and glucose 87. INR is 1.7. ASSESSMENT/PLAN: Mrs. Billy is a 61-year-old female who has history of aortic valve replacement times two, chronic atrial fibrillation and now also severe pulmonary hypertension. She has principally right-sided congestive heart failure that has been responding favorably to diuresis. I am somewhat concerned that her renal function has been slowly but surely declining. Even though she is still not in her dry weight, I think we should watch the creatinine closely and I would probably stop aggressive diuresis if the creatinine gets any worse. The dosing of diuretic is left with nephrology. In my opinion, she is approaching discharge in the next day or two.
[2017-01-17] MEDS: SERTRALINE 100 MG TAB PO SCH (09:59)
[2017-01-17] MEDS: ATENOLOL 50 MG TAB PO SCH ×2 (10:00→21:00)
[2017-01-17] MEDS: POTASSIUM CHLORIDE 10 MEQ SR TABLET PO SCH (10:01)
[2017-01-17] MEDS: SPIRONOLACTONE 25 MG TAB PO SCH ×2 (10:04→21:23)
[2017-01-17] MEDS: FOLIC ACID 1 MG TAB PO SCH (10:05)
[2017-01-17] MEDS: ALLOPURINOL 100 MG TAB PO SCH (10:06)
[2017-01-17] MEDS: ASPIRIN 81 MG ENTERIC TAB PO SCH (10:06)
[2017-01-17] MEDS: clonazePAM 0.5 MG TAB PO SCH ×4 (10:30→21:23)
[2017-01-17] MEDS: METHADONE 5 MG TAB (S0109) PO SCH ×2 (10:31→21:24)
--- NOTE | 2017-01-17 16:57 | IPNPDOC ---
Subjective Date Seen The patient was seen on 01/17/17. Subjective Chief Complaint/HPI The patient is a 61-year-old female admitted with a reason for visit of Acute Renal Failure, Heart Failure. Events since last encounter Patient has been cleared by physical therapy for discharge. She does not have any acute concerns today. Constitutional: Denies: Chills, Fever Pulmonary: Reports: Dyspnea (mild shortness of breath with activity) Cardiovascular: Denies: Chest Pain Objective Physical Examination General Exam: Positive: Alert, Cooperative, No Acute Distress Chest Exam: Positive: Clear to auscultation, Normal air movement, Negative: Rales, Rhonchi, Wheezing, Diminished Heart Exam: Positive: Rate Normal, Irregular Rhythm, Normal S1, Normal S2, Negative: Gallops, Murmurs, Rubs Telemetry: Positive: Atrial fibrillation Abdomen Exam: Positive: Normal bowel sounds, Soft, Negative: Tenderness, Hepatospenomegaly Extremity Exam: Positive: Edema (to level of the knee) Assessment /Plan Problems (1) Right-sided congestive heart failure Problem Text: 01/17: Improving, continue recommendations as per cardiology and nephrology 01/15: Acute on chronic. Follows with cardiology. Diuresing per recommendations of cardiology and nephrology. Improving, approaching euvolemia. (2) Atrial fibrillation Problem Text: 01/17: INR down to 1.65 today, I suspect this is likely secondary to her Coumadin being held, it was restarted on 01/15. I suspect her INR will start to rise within the next day or 2, no medication adjustments at this time. Continue to monitor. 01/16: INR of 1.71 today, continue with Coumadin, continue to monitor 01/15: With RVR. Beta preet dose increased to better control. Warfarin restarted. (3) Graves' disease Problem Text: S/p ablation, on levothyroxine. Will require outpt follow up to determine if appropriately replaced when she is not acutely ill. (4) Moderate to severe pulmonary hypertension Problem Text: with R sided CHF. (5) Congenital aortic stenosis Problem Text: S/p surgical repair. (6) Acute renal failure Status: Acute Problem Text: Improving. Followed by nephrology. (7) Chronic pain Problem Text: Confirmed home medication regiment, and restarted [place]. Plan/VTE VTE Prophylaxis Ordered?: Yes Disposition Discharge once patient has been cleared by nephrology VS, I&O, 24H, Fishbone Vital Signs/I&O Vital Signs Date Time Temp Pulse Resp B/P (MAP) Pulse Ox O2 Delivery O2 Flow Rate FiO2 01/17/17 16:21 98.8 89 16 97/54 (68) 94 Room Air 01/13/17 00:00 2.0 I&O- Last 24 Hours up to 6 AM 01/18/17 06:00 Intake Total 883 ml Output Total 1350 ml Balance -467 ml Laboratory Data 24H LABS Laboratory Tests 2 01/17/17 05:30: Nucleated Red Blood Cells % (auto) 0.0, Prothrombin Time 20.0H, Prothromb Time International Ratio 1.65, Anion Gap 8, Glomerular Filtration Rate 35.4L, Blood Urea Nitrogen 29H, Creatinine 1.58H, Sodium Level 137, Potassium Level 3.8, Chloride Level 97L, Carbon Dioxide Level 32, Calcium Level 9.8, Magnesium Level 2.3 CBC/BMP Laboratory Tests 01/17/17 05:30 Red Blood Count 4.10, Mean Corpuscular Volume 93.4, Mean Corpuscular Hemoglobin 29.5, Mean Corpuscular Hemoglobin Concent 31.6 L, Red Cell Distribution Width 18.5 H, Calcium Level 9.8 GME ATTESTATION GME ATTESTATION My faculty preceptor for this patient encounter was physically present during the encounter and was fully available. All aspects of the patient interview, examination, medical decision making process, and medical care plan development were reviewed and approved by the faculty preceptor. The faculty preceptor is aware and concurs with the plan as stated in the body of this note and will attest to such by his/her cosignature. JUAN MIGUEL AMATO DO Jan 17, 2017 16:57
[2017-01-17] MEDS ORDERED: WARFARIN SOD 5 MG TAB PO SCH (17:00)
[2017-01-17] MEDS: FUROSEMIDE injection 250 MG in D5W 225 ML IV SCH (18:49)
[2017-01-17] MEDS: zolPIDEM TARTRATE 5 MG TAB PO SCH (21:23)
[2017-01-17] MEDS: MONTELUKAST 10 MG TAB PO SCH (21:23)
[2017-01-18 04:00] VITALS: BP 114/69
[2017-01-18 05:29] LABS: MEAN CORPUSCULAR HEMOGLOBIN 29.2 pg (27.0-33.0); MEAN CORPUSCULAR HGB CONC 31.7 g/dl (32.0-36.5); MEAN CORPUSCULAR VOLUME 92.1 fl (80.0-96.0); PLATELET COUNT, AUTOMATED 101 10^3/uL (150-450); RED CELL DISTRIBUTION WIDTH 18.1 % (11.5-14.5); WHITE BLOOD COUNT 4.2 10^3/uL (4.0-10.0)
[2017-01-18 05:38] LABS: INR 1.64
[2017-01-18 05:47] LABS: CALCIUM LEVEL 9.3 MG/DL (8.8-10.2); CREATININE FOR GFR 1.46 MG/DL (0.55-1.02); GLOMERULAR FILTRATION RATE 38.8 (>45); MAGNESIUM LEVEL 2.1 MG/DL (1.8-2.4); POTASSIUM SERUM 3.4 MEQ/L (3.5-5.1)
[2017-01-18] MEDS: SLF 3 ML SYR IV SCH (06:00)
[2017-01-18] MEDS: LEVOTHYROXINE 150MCG TABLET (0.15MG) PO SCH (06:04)
[2017-01-18] MEDS: LEVOTHYROXINE 25MCG TABLET (0.025MG) PO SCH (06:04)
[2017-01-18 07:15] VITALS: BP 108/52
--- NOTE | 2017-01-18 09:16 | IPN ---
DATE: 01/18/2017 Mrs. Billy is feeling better, she would like to go home. She denies any dyspnea at rest and she was able to ambulate in PCU without difficulty. Vital signs: Blood pressure 108/52, heart rate in 90s, afebrile. Saturation 94% on 2 liters of oxygen. Yesterday her balance was about 800 negative. Weight was documented 98.7 which is clearly wrong. Her jugular venous pulse (JVP) still very high and will remain high due to her severe TR. Lungs are clear. Heart exam irregular rhythm. There is still murmur best heard over the left lower sternal border consistent with CR. Abdomen is soft, there is still about 1+ edema, but overall much improved. Basic metabolic panel potassium 3.4, BUN 29, creatinine 1.5, GFR 39 which is a little bit better than yesterday. INR is 1.6 and CBC hemoglobin 11.9, hematocrit 35, platelets 101,000. ASSESSMENT/PLAN: Mrs. Billy is 61-year-old female who has history of aortic valve replacement type 2 and chronic atrial fibrillation and most importantly severe pulmonary hypertension with resulting severe tricuspid insufficiency. She presented with right-sided heart failure and responded favorably to administration of IV diuretics. I believe that she is getting close to euvolemic status and I would be inclined to discharge the patient home today. My recommendation would be to use torsemide instead of furosemide for maintenance therapy. I plan to see the patient in followup next week.
[2017-01-18] MEDS: FOLIC ACID 1 MG TAB PO SCH (09:36)
[2017-01-18] MEDS: ALLOPURINOL 100 MG TAB PO SCH (09:36)
[2017-01-18] MEDS: SERTRALINE 100 MG TAB PO SCH (09:36)
[2017-01-18] MEDS: clonazePAM 0.5 MG TAB PO SCH (09:36)
[2017-01-18] MEDS: POTASSIUM CHLORIDE 10 MEQ SR TABLET PO SCH (09:36)
[2017-01-18] MEDS: ASPIRIN 81 MG ENTERIC TAB PO SCH (09:36)
[2017-01-18] MEDS: SPIRONOLACTONE 25 MG TAB PO SCH (09:36)
[2017-01-18 09:37] VITALS: BP 108/52
[2017-01-18] MEDS: ATENOLOL 50 MG TAB PO SCH (09:37)
[2017-01-18] MEDS: METHADONE 5 MG TAB (S0109) PO SCH (09:37)
[2017-01-18] MEDS ORDERED: ATEN50TA2 PO (10:41)
[2017-01-18] MEDS ORDERED: TORS10TA3 PO (10:41)
[2017-01-18] MEDS ORDERED: ALDA25TA2 PO (10:41)
[2017-01-18] MEDS ORDERED: POTASSIUM CHLORIDE 10 MEQ SR TABLET PO ONE (10:45)
[2017-01-18] MEDS ORDERED: POTA10CA PO (10:49)
--- NOTE | 2017-01-18 12:37 | IPN ---
DATE OF SERVICE: 01/17/2017 SUBJECTIVE: The patient is seen this morning at the bedside. She reports she feels well, denies any acute overnight events, continues to ambulate, and reports significant improvement in her shortness of breath and dyspnea on exertion. VITAL SIGNS: Temperature 97.8, pulse 75, respiratory rate 18, blood pressure 103/69, saturating 98% on room air. INTAKE AND OUTPUT: Oral intake yesterday 900 mL, urine output 2140 mL, net negative 1200 mL. Weight on the bed scale today is 83.6 kg. GENERAL: The patient is seen sitting up in bed comfortable in no acute distress, in good spirits. HEENT: Extraocular muscles are intact. The tongue is moist. NECK: Significant for elevated jugular veins. CARDIAC: S1, S2, irregularly irregular. Systolic murmur. 2+ radial pulses. Improvement in her lower extremity pitting edema. Still about 2+. LUNGS: Fairly clear to auscultation bilaterally. She is comfortable on room air. ABDOMEN: Soft, obese, nontender. There is positive bowel sounds. NEUROLOGIC: She is at her baseline mentation. No issues. PSYCHIATRIC: Appropriate mood and affect. LABORATORY DATA: White count 4.4, hemoglobin 12, platelets 100, sodium 137, potassium 3.8, bicarbonate 32, BUN 29, creatinine 1.5. INPATIENT MEDICATIONS: Patient continues on Lasix drip at 7 mg an hour. Her warfarin is adjusted per the primary team. There is no other change in her medications. PROBLEMS: 1. Type 2 cardiorenal in the setting of decompensated right-sided heart failure. The patient's volume status has improved over the past several days with IV diuretics. Today she is continued on Lasix drip at 7 mg an hour with low dose spironolactone 12.5 mg twice a day. Her cumulative negative fluid balance thus far is about 10 liters with about 6-7 kg decrease in her weight. She has had some fluctuation in her GFR with aggressive diuresis. I feel her borderline blood pressures may also be contributing to the decremental decrease in GFR. She is on atenolol 100 mg twice a day and I have thus decreased the dose of spironolactone. 2. Borderline blood pressures. Patient's systolic has been in the 90s. She is on atenolol 100 twice a day for her chronic atrial fibrillation. I have reduced her aldactone to 12.5 mg twice a day. Diuresis in the setting of borderline blood pressures puts her at risk for decremental decrease in GFR and acute kidney injury. In view of this, I will keep her on Lasix drip as opposed to Lasix bolus and we will not use any other concomitant diuretic such as Diuril or Diamox at this time. 3. Discharge planning. The patient is improving from a volume point of view and I plan to transition her to oral diuretics in the next 24-48 hours in preparation for discharge.
[2017-01-18] MEDS ORDERED: TORSEMIDE 10 MG TABLET PO SCH (17:00)
--- NOTE | 2017-01-19 12:04 | IPN ---
DATE OF SERVICE: 01/18/2017 SUBJECTIVE: The patient was seen this morning at the bedside. She feels well. Denies any complaints. Has been ambulating and is very pleased with her improvement thus far. Denies any shortness of breath or dyspnea on exertion. She asked questions regarding her dietary restrictions upon discharge, and I had a discussion with her regarding the same. VITAL SIGNS: Temperature 97.8, pulse 100, respiratory rate 20, blood pressure 108/52, saturating 94% on room air. INTAKE AND OUTPUT: Oral intake yesterday is 1218, urine output is 2875. Weight in the bed scale today is 79.9 kg. GENERAL: The patient is seen sitting up in bed, comfortable, in no acute distress. Extraocular muscles are intact. Moist mucous membrane. Her jugular veins are distended. Her lungs are clear. CARDIAC: S1, S2, irregular, mild tachycardia, systolic murmur. The abdomen is soft, nontender. Positive bowel sounds. Lower extremities have ongoing 1+ edema, pitting present in the [place], as well as thigh but overall significantly improved. LABORATORIES: Sodium 138, potassium 3.4, bicarbonate 29, creatinine 1.4. Hemoglobin 11.9. INPATIENT MEDICATIONS: I have discontinued the patient's Lasix drip and placed her on Demadex 30 mg by mouth twice a day. There is no other significant change in her medications. PROBLEMS: 1. Decompensated right-sided heart failure with type 2 cardiorenal. The patient's volume status has significantly improved over the past several days with intravenous (IV) diuretics. She has had some fluctuation in her glomerular filtration rate (GFR), likely due to aggressive diuresis and borderline blood pressures, but overall her renal function has happily stayed fairly stable and is improved from admission. I have discontinued her off of Lasix drip and switched to Demadex 30 mg by mouth twice a day with continuation of oral spironolactone 12.5 mg twice a day, and the patient will followup with me in the office on 01/22/2017 with repeat blood work. 2. Chronic atrial fibrillation. The patient continues on atenolol 100 twice a day. Her mean arterial pressures (MAPs) have been above 65. In order to not decompensate her from a hemodynamic point of view, her Aldactone has chronically been reduced to 12.5 mg twice a day. She is anticoagulated with Coumadin, and her international normalized ratio (INR) at present is subtherapeutic. Management is as per cardiology. DISCHARGE: The patient's volume status has significantly improved over the course of this admission with mild ongoing hypervolemia. Her renal function is stable. She is transitioned over to an oral diuretic regimen and is stable for discharge from a renal point of view with close outpatient followup in the office with repeat blood work on 01/22/2017.
--- NOTE | 2017-01-19 12:48 | DSES ---
DATE OF ADMISSION: 01/11/2017 DATE OF DISCHARGE: 01/18/2017 BRIEF HISTORY AND PHYSICAL: The patient is a 61-year-old patient of Edwina Gannon, who presented to the emergency room with increased fluid retention. PAST MEDICAL HISTORY: Is significant for congestive heart failure, aortic valve replacement times two, Graves disease status post ablation, chronic kidney disease, chronic atrial fibrillation on Coumadin, severe tricuspid regurgitation, moderate MR, MS, and severe pulmonary hypertension. PERTINENT LABORATORIES ON ADMISSION: White count 5.2, hemoglobin 12.9, platelets 149,000. Sodium 137, potassium 3.9, BUN 40, creatinine 1.9, glucose 74. CIP and troponin were negative. Magnesium level was normal. INR was 3.92. Chest x-ray showed cardiomegaly. Vascular ultrasound of the bilateral lower extremities was negative for deep venous thrombosis (DVT). Renal ultrasound showed ascites and cholelithiasis. HOSPITAL COURSE: 1. The patient was admitted for acute right-sided heart failure and acute renal failure. Dr. Garcia and Dr. Andressa Anthony saw her in consultation. Diuretic doses were adjusted throughout the hospitalization. She responded favorably to intravenous (IV) diuretics. Was felt to be close to euvolemic at the time of her discharge. She recommended switching her to torsemide instead of furosemide or Bumex and continuing her potassium-sparing diuretic and will be discharged home. 2. Acute on chronic kidney disease. Renal function improved with diuresis. BUN and creatinine are 29 and 1.46 at the time of discharge. 3. Hypokalemia. The patient has been started on oral potassium. Her potassium was a little low at the time of discharge, and she will be given additional dose of potassium prior to discharge, along with her potassium-sparing diuretic. 4. Chronic atrial fibrillation. Her rate has been variable and somewhat rapid when her atenolol was held. The atenolol has been restarted, but the dose has been adjusted to some extent. She is on it twice a day instead of three times a day at discharge. Her international normalized ratio (INR) was high on admission. Coumadin was held and then restarted. It has been low now for the last few days, so she will get 5 mg a day Saturday, Saturday, and Saturday; and then she should have a PT/INR on Saturday in the office. Further adjustments of her Coumadin would be per her primary care provider. 5. Chronic pain. She is on methadone, and this was continued during her hospitalization. DISPOSITION: She is stable for discharge. Followup with Edwina Gannon next week. She should have a PT/INR on Saturday. Followup with cardiology and nephrology per their offices. MEDICATIONS: - atenolol 100 mg twice a day - potassium 40 mEq daily - spironolactone 12.5 mg twice a day - torsemide 30 mg twice a day - hydrocodone 10/325 one tablet four times a day as needed - allopurinol 100 mg daily - aspirin 81 mg daily - Klonopin 0.5 mg four times a day - Premarin 0.625 mg daily - vitamin D 2000 international units weekly - fenofibrate 160 mg at bedtime - folic acid 1 mg daily - levothyroxine 25 mcg daily, along with 300 mcg daily - methadone 7.5 mg twice a day - montelukast 10 mg at bedtime - Zoloft 100 mg daily - Coumadin, she will take 5 mg a day Saturday, Saturday, and Saturday, and then a PT/INR on Saturday - Ambien 10 mg at bedtime Diet 2-gram sodium. Activity as tolerated. DISCHARGE DIAGNOSES: 1. Acute right-sided heart failure. 2. Acute on chronic renal failure. 3. Atrial fibrillation. 4. Chronic anticoagulation. 5. Chronic pain. 6. Severe tricuspid regurgitation.
== END 2017-01-18 13:26 | disposition home health service (06) | DRG 292 ==
LOC: M ED 16:39 → M ED INP 23:02 → M PCU 01-12 13:58
PROVIDERS: ADMIT Internal Medicine; ATTEND Family Medicine
DX: I13.0 Hypertensive heart and chronic kidney disease with heart failure and stage 1 through stage 4 chronic kidney disease, or unspecified chronic kidney disease (principal); N17.9 Acute kidney failure, unspecified; E87.3 Alkalosis; I50.813 Acute on chronic right heart failure; E66.9 Obesity, unspecified; I48.2 Chronic atrial fibrillation; I27.20 Pulmonary hypertension, unspecified; G89.29 Other chronic pain; I36.1 Nonrheumatic tricuspid (valve) insufficiency; I34.2 Nonrheumatic mitral (valve) stenosis; F32.9 Major depressive disorder, single episode, unspecified; E87.6 Hypokalemia; F17.210 Nicotine dependence, cigarettes, uncomplicated; N18.3 Chronic kidney disease, stage 3 (moderate); J30.9 Allergic rhinitis, unspecified; Z87.891 Personal history of nicotine dependence; Z79.01 Long term (current) use of anticoagulants; Z91.048 Other nonmedicinal substance allergy status; Z95.3 Presence of xenogenic heart valve; Z79.82 Long term (current) use of aspirin; Z79.899 Other long term (current) drug therapy; Z68.32 Body mass index [BMI] 32.0-32.9, adult

== ENCOUNTER → 2017-02-07 | Outpatient (REF) | payer MEDICARE ==
[2017-02-07 13:25] LABS: INR 5.67
== END ==
LOC: M SFHCCLAY 09:26
DX: Z79.01 Long term (current) use of anticoagulants (principal)
CPT/HCPCS: 85610

== ENCOUNTER → 2017-02-18 | Outpatient (REF) | payer MEDICARE ==
[2017-02-18 12:23] LABS: INR 1.81; PROTHROMBIN TIME 21.5 SECONDS (12.4-14.5)
== END ==
LOC: M SFHCCLAY 09:13
DX: Z79.01 Long term (current) use of anticoagulants (principal)
CPT/HCPCS: 85610

== ENCOUNTER → 2017-02-21 | Outpatient (REF) | payer MEDICARE ==
[2017-02-21 13:25] LABS: INR 1.64; PROTHROMBIN TIME 19.8 SECONDS (12.4-14.5)
== END ==
LOC: M SFHCCLAY 08:57
DX: Z79.01 Long term (current) use of anticoagulants (principal)
CPT/HCPCS: 85610

== ENCOUNTER → 2017-03-06 | Outpatient (REF) | payer MEDICARE ==
[2017-03-06 13:34] LABS: INR 3.73; PROTHROMBIN TIME 38.8 SECONDS (12.4-14.5)
== END ==
LOC: M SFHCCLAY 08:33
DX: Z79.01 Long term (current) use of anticoagulants (principal)
CPT/HCPCS: 85610

== ENCOUNTER → 2017-03-14 | Outpatient (REF) | payer MEDICARE ==
[2017-03-14 12:47] LABS: INR 4.77; PROTHROMBIN TIME 47.4 SECONDS (12.4-14.5)
== END ==
LOC: M SFHCCLAY 09:09
DX: Z51.81 Encounter for therapeutic drug level monitoring (principal); Z79.01 Long term (current) use of anticoagulants
CPT/HCPCS: 85610

== ENCOUNTER → 2017-03-18 | Outpatient (REF) | payer MEDICARE ==
[2017-03-18 18:56] LABS: FOLATE > 24.0 NG/ML; VITAMIN B12 LEVEL 501 PG/ML
[2017-03-18 19:37] LABS: FERRITIN 101 NG/ML (8-252); IRON (FE) 40 UG/DL (50-170); TOTAL IRON BINDING CAPACITY 498 UG/DL (250-450)
== END ==
LOC: M LAB REF 18:21
DX: D64.9 Anemia, unspecified (principal)
CPT/HCPCS: 82746

== ENCOUNTER → 2017-03-25 | Outpatient (REF) | payer MEDICARE ==
[2017-03-25 13:20] LABS: INR 4.86; PROTHROMBIN TIME 48.1 SECONDS (12.4-14.5)
== END ==
LOC: M SFHCCLAY 09:18
DX: Z79.01 Long term (current) use of anticoagulants (principal)
CPT/HCPCS: 85610

== ENCOUNTER 2017-04-01 16:01 | Inpatient (IN) | payer MEDICARE ==
[2017-04-01 17:14] LABS: VENOUS BASE EXCESS -0.6 (-2.0-2.0); VENOUS HCO3 26.1 MEQ/L (23.0-27.0); VENOUS O2 SATURATION 62.9 % (60.0-80.0); VENOUS PARTIAL PRESSURE CO2 52.6 mmHg (38.0-50.0); VENOUS PH 7.313 UNITS (7.330-7.430); VENOUS STANDARD HCO3 23.3 MEQ/L; VENOUS TOTAL CO2 27.7 MEQ/L (24.0-28.0)
[2017-04-01 17:17] LABS: BASO % 0.2 % (0.0-1.0); HEMATOCRIT 31.2 % (36.0-47.0); HEMOGLOBIN 9.7 g/dl (12.0-16.0); IMMATURE GRANULOCYTE % 0.9 % (0-3.0); LYMPH # 0.7 10^3/uL (1.5-4.5); LYMPH % 13.4 % (24.0-44.0); MEAN CORPUSCULAR HEMOGLOBIN 28.3 pg (27.0-33.0); MEAN CORPUSCULAR HGB CONC 31.1 g/dl (32.0-36.5); MONO # 0.6 10^3/uL (0.0-0.8); MONO % 11.6 % (0.0-5.0); NEUTROPHILS # 4.1 10^3/uL (1.8-7.7); NEUTROPHILS % 73.9 % (36.0-66.0); PLATELET COUNT, AUTOMATED 191 10^3/uL (150-450); RED BLOOD COUNT 3.43 10^6/uL (4.00-5.40); WHITE BLOOD COUNT 5.5 10^3/uL (4.0-10.0)
[2017-04-01 17:39] LABS: INR 7.31
[2017-04-01 17:42] LABS: ALBUMIN 3.8 GM/DL (3.2-5.2); ALBUMIN/GLOBULIN RATIO 1.19 (1.00-1.93); ALKALINE PHOSPHATASE 83 U/L (45-117); ALT/SGPT 21 U/L (12-78); AST/SGOT 41 U/L (7-37); BILIRUBIN,TOTAL 2.5 MG/DL (0.2-1.0)
[2017-04-01 17:43] LABS: ANION GAP 9 MEQ/L (8-16); BLOOD UREA NITROGEN 45 MG/DL (7-18); CALCIUM LEVEL 8.9 MG/DL (8.8-10.2); CARBON DIOXIDE LEVEL 28 MEQ/L (21-32); CHLORIDE LEVEL 99 MEQ/L (98-107); CK-MB VALUE MASS 3.8 NG/ML (0.0-3.6); CPK CREATINE PHOSPHOKINASE 72 U/L (26-192); CREATININE FOR GFR 2.16 MG/DL (0.55-1.30); GLOMERULAR FILTRATION RATE 24.7 (>45); GLUCOSE, FASTING 64 MG/DL (70-100); MB/CK RELATIVE INDEX 5.27 (< OR =4); POTASSIUM SERUM 4.7 MEQ/L (3.5-5.1); SODIUM LEVEL 136 MEQ/L (136-145); TROPONIN I 0.03 NG/ML (< 0.10)
[2017-04-01] MEDS: FUROSEMIDE 100 MG/10 ML VIAL (J1940) IV (18:50)
[2017-04-01] MEDS ORDERED: PHYTONADIONE 1.25 MG 1/4 TAB PO (19:15)
[2017-04-01] MEDS: PHYTONADIONE 5 MG TAB PO ×2 (19:22→23:19)
[2017-04-01] MEDS ORDERED: FLUTICASONE PROP 0.05% NASAL SPRAY 16 GM (FLONASE) (19:45)
[2017-04-01] MEDS ORDERED: LEVALBUTEROL 1.25 MG/0.5 ML CONCENTRATE NEB INH (19:45)
[2017-04-01] MEDS ORDERED: diphenhydrAMINE 25 MG CAP PO (19:45)
[2017-04-01] MEDS ORDERED: clonazePAM 0.5 MG TAB PO (21:00)
[2017-04-01] MEDS ORDERED: POTASSIUM CHL PWD 20 MEQ PACKET PO (21:00)
[2017-04-01 22:52] LABS: ALBUMIN 3.4 GM/DL (3.2-5.2); ALBUMIN/GLOBULIN RATIO 1.03 (1.00-1.93); ALKALINE PHOSPHATASE 77 U/L (45-117); ALT/SGPT 22 U/L (12-78); AST/SGOT 34 U/L (7-37); BILIRUBIN,TOTAL 2.5 MG/DL (0.2-1.0); CPK CREATINE PHOSPHOKINASE 57 U/L (26-192); MAGNESIUM LEVEL 2.3 MG/DL (1.8-2.4); THYROXINE (T4) 8.4 UG/DL (4.5-12.0); TOTAL PROTEIN 6.7 GM/DL (6.4-8.2); TROPONIN I 0.03 NG/ML (< 0.10)
[2017-04-01 22:58] LABS: CK-MB VALUE MASS 3.1 NG/ML (0.0-3.6); FREE THYROXINE INDEX 2.4 % (1.3-4.8); MB/CK RELATIVE INDEX 5.43 (< OR =4); T UPTAKE 28 % (30-39)
[2017-04-01] MEDS: clonazePAM 0.5 MG TAB PO (23:19)
[2017-04-01] MEDS: FENOFIBRATE 145 MG TAB (TRICOR) PO (23:20)
[2017-04-01] MEDS: ATENOLOL 50 MG TAB PO (23:20)
[2017-04-01] MEDS: PANTOPRAZOLE 40MG TAB (PROTONIX) PO (23:20)
[2017-04-01] MEDS: MONTELUKAST 10 MG TAB PO (23:21)
[2017-04-02] MEDS: zolPIDEM TARTRATE 5 MG TAB PO (01:08)
[2017-04-02] MEDS: FUROSEMIDE 40 MG/4 ML VIAL (J1940) IV ×5 (01:08→17:06)
[2017-04-02] MEDS: METHADONE 5 MG TAB (S0109) PO ×3 (01:09→20:20)
[2017-04-02 02:22] LABS: APPEARANCE, URINE CLEAR (CLEAR); BACTERIA, URINE AUTO NEGATIVE (NEGATIVE); BILIRUBIN, URINE AUTO NEGATIVE (NEGATIVE); BLOOD, URINE BLOOD NEGATIVE (NEGATIVE); COLOR, URINE YELLOW (YELLOW); GLUCOSE, URINE (UA) AUTO NEGATIVE (NEGATIVE); KETONE, URINE AUTO NEGATIVE (NEGATIVE); LEUKOCYTE ESTERASE, URINE AUTO NEGATIVE (NEGATIVE); NITRITE, URINE AUTO NEGATIVE (NEGATIVE); PROTEIN, URINE AUTO NEGATIVE (NEGATIVE); RBC, URINE AUTO 2 /HPF (0-3); SPECIFIC GRAVITY URINE AUTO 1.005 (1.002-1.035); SQUAMOUS EPITHELIAL CELL UR AU 0 /HPF (0-6); UROBILINOGEN, URINE AUTO 0.2 mg/dL (0.0-2.0); WBC, URINE AUTO 0 /HPF (0-3)
[2017-04-02 02:46] LABS: CHLORIDE,RANDOM URINE 117 MEQ/L; CREATININE,RANDOM URINE 15.6 MG/DL; POTASSIUM RANDOM URINE 23.5 MEQ/L; SODIUM,RANDOM URINE 100 MEQ/L; TOTAL PROTEIN,RANDOM URINE < 5.0 MG/DL (0.0-12.0)
[2017-04-02 03:14] LABS: OSMOLALITY URINE 304 MOSM/KG (500-800)
[2017-04-02 07:31] LABS: HEMATOCRIT 27.3 % (36.0-47.0); HEMOGLOBIN 8.7 g/dl (12.0-16.0); MEAN CORPUSCULAR HEMOGLOBIN 28.5 pg (27.0-33.0); MEAN CORPUSCULAR HGB CONC 31.9 g/dl (32.0-36.5); MEAN CORPUSCULAR VOLUME 89.5 fl (80.0-96.0); PLATELET COUNT, AUTOMATED 144 10^3/uL (150-450); RED BLOOD COUNT 3.05 10^6/uL (4.00-5.40); RED CELL DISTRIBUTION WIDTH 17.9 % (11.5-14.5); WHITE BLOOD COUNT 5.4 10^3/uL (4.0-10.0)
[2017-04-02 07:41] LABS: INR 3.63; PROTHROMBIN TIME 37.9 SECONDS (12.4-14.5)
[2017-04-02 07:50] LABS: ALBUMIN 3.1 GM/DL (3.2-5.2); ALBUMIN/GLOBULIN RATIO 0.97 (1.00-1.93); ALKALINE PHOSPHATASE 69 U/L (45-117); ALT/SGPT 18 U/L (12-78); ANION GAP 9 MEQ/L (8-16); AST/SGOT 34 U/L (7-37); BILIRUBIN,DIRECT 1.9 MG/DL (0.0-0.2); BILIRUBIN,TOTAL 2.3 MG/DL (0.2-1.0); BLOOD UREA NITROGEN 46 MG/DL (7-18); CALCIUM LEVEL 8.8 MG/DL (8.8-10.2); CARBON DIOXIDE LEVEL 29 MEQ/L (21-32); CHLORIDE LEVEL 99 MEQ/L (98-107); CREATININE FOR GFR 1.98 MG/DL (0.55-1.30); GLOMERULAR FILTRATION RATE 27.3 (>45); GLUCOSE, FASTING 72 MG/DL (70-100); MAGNESIUM LEVEL 2.4 MG/DL (1.8-2.4); POTASSIUM SERUM 3.9 MEQ/L (3.5-5.1); SODIUM LEVEL 137 MEQ/L (136-145); TOTAL PROTEIN 6.3 GM/DL (6.4-8.2)
[2017-04-02] MEDS: LEVOTHYROXINE 150MCG TABLET (0.15MG) PO (07:56)
[2017-04-02] MEDS: LEVOTHYROXINE 25MCG TABLET (0.025MG) PO (07:56)
[2017-04-02] MEDS ORDERED: VITAMIN D 50,000 UNITS CAPSULE (ERGOCALCIFEROL 1.25MG) PO (09:00)
[2017-04-02] MEDS: VITAMIN D 50,000 UNITS CAPSULE (ERGOCALCIFEROL 1.25MG) PO (09:05)
[2017-04-02] MEDS: FOLIC ACID 1 MG TAB PO (09:05)
[2017-04-02] MEDS: ASPIRIN 81 MG ENTERIC TAB PO (09:05)
[2017-04-02] MEDS: clonazePAM 0.5 MG TAB PO ×3 (09:05→20:19)
[2017-04-02] MEDS: SERTRALINE 100 MG TAB PO (09:05)
[2017-04-02] MEDS: ALLOPURINOL 100 MG TAB PO (09:06)
[2017-04-02] MEDS: MAGNESIUM OXIDE 400 MG TAB (MAG-OX) PO (09:06)
[2017-04-02] MEDS: ATENOLOL 50 MG TAB PO ×2 (09:06→20:19)
[2017-04-02] MEDS: ADVAIR HFA 45/21MCG INHALER INH ×2 (09:12→20:01)
[2017-04-02] MEDS: FENOFIBRATE 145 MG TAB (TRICOR) PO (20:18)
[2017-04-02] MEDS: MONTELUKAST 10 MG TAB PO (20:19)
[2017-04-02] MEDS: zolPIDEM TARTRATE 10MG TAB PO (20:20)
[2017-04-02] MEDS: PANTOPRAZOLE 40MG TAB (PROTONIX) PO (20:20)
[2017-04-03 04:59] LABS: HEMATOCRIT 27.9 % (36.0-47.0); HEMOGLOBIN 8.9 g/dl (12.0-16.0); MEAN CORPUSCULAR HGB CONC 31.9 g/dl (32.0-36.5); MEAN CORPUSCULAR VOLUME 90.9 fl (80.0-96.0); PLATELET COUNT, AUTOMATED 138 10^3/uL (150-450); RED BLOOD COUNT 3.07 10^6/uL (4.00-5.40); WHITE BLOOD COUNT 4.7 10^3/uL (4.0-10.0)
[2017-04-03 05:10] LABS: INR 1.91; PROTHROMBIN TIME 22.5 SECONDS (12.4-14.5)
[2017-04-03 05:19] LABS: ALBUMIN 3.2 GM/DL (3.2-5.2); ANION GAP 9 MEQ/L (8-16); BLOOD UREA NITROGEN 46 MG/DL (7-18); CALCIUM LEVEL 8.6 MG/DL (8.8-10.2); CARBON DIOXIDE LEVEL 29 MEQ/L (21-32); CHLORIDE LEVEL 98 MEQ/L (98-107); CREATININE FOR GFR 1.98 MG/DL (0.55-1.30); GLOMERULAR FILTRATION RATE 27.3 (>45); GLUCOSE, FASTING 110 MG/DL (70-100); MAGNESIUM LEVEL 2.5 MG/DL (1.8-2.4); PHOSPHORUS LEVEL 3.5 MG/DL (2.5-4.9); POTASSIUM SERUM 3.8 MEQ/L (3.5-5.1); SODIUM LEVEL 136 MEQ/L (136-145)
[2017-04-03] MEDS: LEVOTHYROXINE 25MCG TABLET (0.025MG) PO (05:52)
[2017-04-03] MEDS: LEVOTHYROXINE 150MCG TABLET (0.15MG) PO (05:52)
[2017-04-03] MEDS: FUROSEMIDE 40 MG/4 ML VIAL (J1940) IV ×5 (06:00→23:58)
[2017-04-03] MEDS: ADVAIR HFA 45/21MCG INHALER INH ×2 (07:50→22:00)
[2017-04-03] MEDS: ALLOPURINOL 100 MG TAB PO (09:23)
[2017-04-03] MEDS: SERTRALINE 100 MG TAB PO (09:23)
[2017-04-03] MEDS: ASPIRIN 81 MG ENTERIC TAB PO (09:23)
[2017-04-03] MEDS: METHADONE 5 MG TAB (S0109) PO ×2 (09:24→20:28)
[2017-04-03] MEDS: MAGNESIUM OXIDE 400 MG TAB (MAG-OX) PO (09:24)
[2017-04-03] MEDS: FOLIC ACID 1 MG TAB PO (09:25)
[2017-04-03] MEDS: clonazePAM 0.5 MG TAB PO ×4 (09:25→20:20)
[2017-04-03] MEDS: ATENOLOL 50 MG TAB PO ×2 (09:28→20:33)
[2017-04-03] MEDS: NORCO, ANEXSIA 5/325MG TABLET (HYDROcodone/ACETAMINOPHEN) PO (14:24)
[2017-04-03] MEDS: WARFARIN SOD 2 MG TAB PO (17:31)
[2017-04-03] MEDS: FENOFIBRATE 145 MG TAB (TRICOR) PO (20:20)
[2017-04-03] MEDS: PANTOPRAZOLE 40MG TAB (PROTONIX) PO (20:20)
[2017-04-03] MEDS: zolPIDEM TARTRATE 10MG TAB PO (20:20)
[2017-04-03] MEDS: MONTELUKAST 10 MG TAB PO (20:20)
[2017-04-04 02:26] LABS: ANION GAP 10 MEQ/L (8-16); BLOOD UREA NITROGEN 43 MG/DL (7-18); CALCIUM LEVEL 8.8 MG/DL (8.8-10.2); CARBON DIOXIDE LEVEL 29 MEQ/L (21-32); CHLORIDE LEVEL 97 MEQ/L (98-107); CREATININE FOR GFR 1.83 MG/DL (0.55-1.30); GLOMERULAR FILTRATION RATE 29.9 (>45); GLUCOSE, FASTING 105 MG/DL (70-100); MAGNESIUM LEVEL 2.1 MG/DL (1.8-2.4); POTASSIUM SERUM 3.6 MEQ/L (3.5-5.1); SODIUM LEVEL 136 MEQ/L (136-145)
[2017-04-04] MEDS: POTASSIUM CHLORIDE 10 MEQ SR TABLET PO (03:38)
[2017-04-04 05:54] LABS: HEMATOCRIT 27.9 % (36.0-47.0); HEMOGLOBIN 8.8 g/dl (12.0-16.0); MEAN CORPUSCULAR HEMOGLOBIN 28.7 pg (27.0-33.0); MEAN CORPUSCULAR HGB CONC 31.5 g/dl (32.0-36.5); MEAN CORPUSCULAR VOLUME 90.9 fl (80.0-96.0); PLATELET COUNT, AUTOMATED 137 10^3/uL (150-450); RED BLOOD COUNT 3.07 10^6/uL (4.00-5.40); RED CELL DISTRIBUTION WIDTH 17.8 % (11.5-14.5); WHITE BLOOD COUNT 4.7 10^3/uL (4.0-10.0)
[2017-04-04] MEDS: FUROSEMIDE 40 MG/4 ML VIAL (J1940) IV ×3 (06:00→17:24)
[2017-04-04 06:08] LABS: INR 1.59; PROTHROMBIN TIME 19.4 SECONDS (12.4-14.5)
[2017-04-04] MEDS: LEVOTHYROXINE 150MCG TABLET (0.15MG) PO (06:14)
[2017-04-04] MEDS: LEVOTHYROXINE 25MCG TABLET (0.025MG) PO (06:14)
[2017-04-04 06:19] LABS: ALBUMIN 3.1 GM/DL (3.2-5.2); ANION GAP 7 MEQ/L (8-16); BLOOD UREA NITROGEN 42 MG/DL (7-18); CALCIUM LEVEL 8.8 MG/DL (8.8-10.2); CARBON DIOXIDE LEVEL 31 MEQ/L (21-32); CHLORIDE LEVEL 98 MEQ/L (98-107); CREATININE FOR GFR 1.88 MG/DL (0.55-1.30); GLUCOSE, FASTING 96 MG/DL (70-100); MAGNESIUM LEVEL 2.5 MG/DL (1.8-2.4); PHOSPHORUS LEVEL 3.1 MG/DL (2.5-4.9); POTASSIUM SERUM 4.2 MEQ/L (3.5-5.1); SODIUM LEVEL 136 MEQ/L (136-145)
[2017-04-04] MEDS: ADVAIR HFA 45/21MCG INHALER INH ×2 (07:31→21:00)
[2017-04-04] MEDS: METHADONE 5 MG TAB (S0109) PO ×2 (08:52→20:42)
[2017-04-04] MEDS: ASPIRIN 81 MG ENTERIC TAB PO (08:53)
[2017-04-04] MEDS: ATENOLOL 50 MG TAB PO (08:53)
[2017-04-04] MEDS: ALLOPURINOL 100 MG TAB PO (08:54)
[2017-04-04] MEDS: FOLIC ACID 1 MG TAB PO (08:54)
[2017-04-04] MEDS: clonazePAM 0.5 MG TAB PO ×4 (08:54→20:37)
[2017-04-04] MEDS: SERTRALINE 100 MG TAB PO (08:54)
[2017-04-04] MEDS: DIGOXIN INJ 0.5 MG/2 ML AMP (J1160) IV (12:09)
[2017-04-04] MEDS: WARFARIN SOD 5 MG TAB PO (17:23)
[2017-04-04] MEDS: PANTOPRAZOLE 40MG TAB (PROTONIX) PO (20:37)
[2017-04-04] MEDS: MONTELUKAST 10 MG TAB PO (20:37)
[2017-04-04] MEDS: zolPIDEM TARTRATE 10MG TAB PO (20:37)
[2017-04-04] MEDS: FENOFIBRATE 145 MG TAB (TRICOR) PO (20:37)
[2017-04-05] MEDS: DIGOXIN INJ 0.5 MG/2 ML AMP (J1160) IV (00:25)
[2017-04-05] MEDS: LEVOTHYROXINE 150MCG TABLET (0.15MG) PO (05:27)
[2017-04-05] MEDS: LEVOTHYROXINE 25MCG TABLET (0.025MG) PO (05:27)
[2017-04-05] MEDS: FUROSEMIDE 40 MG/4 ML VIAL (J1940) IV ×2 (05:28)
[2017-04-05 06:38] LABS: HEMATOCRIT 27.8 % (36.0-47.0); HEMOGLOBIN 8.6 g/dl (12.0-16.0); MEAN CORPUSCULAR HEMOGLOBIN 28.2 pg (27.0-33.0); MEAN CORPUSCULAR HGB CONC 30.9 g/dl (32.0-36.5); MEAN CORPUSCULAR VOLUME 91.1 fl (80.0-96.0); PLATELET COUNT, AUTOMATED 124 10^3/uL (150-450); RED BLOOD COUNT 3.05 10^6/uL (4.00-5.40); WHITE BLOOD COUNT 4.7 10^3/uL (4.0-10.0)
[2017-04-05 06:43] LABS: PROTHROMBIN TIME 19.5 SECONDS (12.4-14.5)
[2017-04-05 06:49] LABS: ALBUMIN 3.1 GM/DL (3.2-5.2); ANION GAP 5 MEQ/L (8-16); BLOOD UREA NITROGEN 38 MG/DL (7-18); CALCIUM LEVEL 8.4 MG/DL (8.8-10.2); CARBON DIOXIDE LEVEL 32 MEQ/L (21-32); CHLORIDE LEVEL 100 MEQ/L (98-107); CREATININE FOR GFR 1.64 MG/DL (0.55-1.30); GLOMERULAR FILTRATION RATE 33.9 (>45); GLUCOSE, FASTING 97 MG/DL (70-100); MAGNESIUM LEVEL 2.3 MG/DL (1.8-2.4); PHOSPHORUS LEVEL 2.7 MG/DL (2.5-4.9); POTASSIUM SERUM 4.1 MEQ/L (3.5-5.1); SODIUM LEVEL 137 MEQ/L (136-145)
[2017-04-05] MEDS: ADVAIR HFA 45/21MCG INHALER INH ×2 (07:22→19:57)
[2017-04-05] MEDS: FOLIC ACID 1 MG TAB PO (09:47)
[2017-04-05] MEDS: ALLOPURINOL 100 MG TAB PO (09:47)
[2017-04-05] MEDS: METHADONE 5 MG TAB (S0109) PO ×2 (09:47→21:20)
[2017-04-05] MEDS: ASPIRIN 81 MG ENTERIC TAB PO (09:47)
[2017-04-05] MEDS: clonazePAM 0.5 MG TAB PO ×4 (09:47→21:22)
[2017-04-05] MEDS: SERTRALINE 100 MG TAB PO (09:47)
[2017-04-05] MEDS: MAGNESIUM OXIDE 400 MG TAB (MAG-OX) PO (09:48)
[2017-04-05] MEDS: ATENOLOL 50 MG TAB PO (09:53)
[2017-04-05] MEDS: SPIRONOLACTONE 25 MG TAB PO ×2 (13:04→17:16)
[2017-04-05] MEDS: BUMETANIDE 1 MG TAB PO ×2 (13:47→21:00)
[2017-04-05] MEDS: WARFARIN SOD 5 MG TAB PO (17:16)
[2017-04-05] MEDS: zolPIDEM TARTRATE 10MG TAB PO (21:00)
[2017-04-05] MEDS: PANTOPRAZOLE 40MG TAB (PROTONIX) PO (21:22)
[2017-04-05] MEDS: MONTELUKAST 10 MG TAB PO (21:23)
[2017-04-05] MEDS: FENOFIBRATE 145 MG TAB (TRICOR) PO (21:23)
[2017-04-06] MEDS: DIGOXIN INJ 0.5 MG/2 ML AMP (J1160) IV (01:23)
[2017-04-06 05:50] LABS: HEMOGLOBIN 8.4 g/dl (12.0-16.0); MEAN CORPUSCULAR HEMOGLOBIN 28.5 pg (27.0-33.0); MEAN CORPUSCULAR HGB CONC 31.1 g/dl (32.0-36.5); MEAN CORPUSCULAR VOLUME 91.5 fl (80.0-96.0); PLATELET COUNT, AUTOMATED 112 10^3/uL (150-450); RED BLOOD COUNT 2.95 10^6/uL (4.00-5.40); WHITE BLOOD COUNT 4.5 10^3/uL (4.0-10.0)
[2017-04-06 05:59] LABS: INR 2.12; PROTHROMBIN TIME 24.5 SECONDS (12.4-14.5)
[2017-04-06 06:04] LABS: ANION GAP 9 MEQ/L (8-16); BLOOD UREA NITROGEN 30 MG/DL (7-18); CALCIUM LEVEL 8.7 MG/DL (8.8-10.2); CARBON DIOXIDE LEVEL 30 MEQ/L (21-32); CHLORIDE LEVEL 98 MEQ/L (98-107); CREATININE FOR GFR 1.39 MG/DL (0.55-1.30); GLUCOSE, FASTING 84 MG/DL (70-100); MAGNESIUM LEVEL 2.2 MG/DL (1.8-2.4); PHOSPHORUS LEVEL 2.3 MG/DL (2.5-4.9); POTASSIUM SERUM 3.8 MEQ/L (3.5-5.1); SODIUM LEVEL 137 MEQ/L (136-145)
[2017-04-06] MEDS: LEVOTHYROXINE 150MCG TABLET (0.15MG) PO (06:07)
[2017-04-06] MEDS: LEVOTHYROXINE 25MCG TABLET (0.025MG) PO (06:07)
[2017-04-06] MEDS: ADVAIR HFA 45/21MCG INHALER INH ×2 (07:44→20:13)
[2017-04-06] MEDS: ATENOLOL 50 MG TAB PO (09:00)
[2017-04-06] MEDS: ASPIRIN 81 MG ENTERIC TAB PO (09:42)
[2017-04-06] MEDS: ALLOPURINOL 100 MG TAB PO (09:43)
[2017-04-06] MEDS: FOLIC ACID 1 MG TAB PO (09:43)
[2017-04-06] MEDS: SERTRALINE 100 MG TAB PO (09:43)
[2017-04-06] MEDS: SPIRONOLACTONE 25 MG TAB PO (09:43)
[2017-04-06] MEDS: clonazePAM 0.5 MG TAB PO ×4 (09:43→22:06)
[2017-04-06] MEDS: METHADONE 5 MG TAB (S0109) PO ×2 (09:43→22:06)
[2017-04-06] MEDS: MAGNESIUM OXIDE 400 MG TAB (MAG-OX) PO (09:43)
[2017-04-06] MEDS: BUMETANIDE 1 MG TAB PO (09:44)
[2017-04-06] MEDS: NORCO, ANEXSIA 5/325MG TABLET (HYDROcodone/ACETAMINOPHEN) PO (13:34)
[2017-04-06] MEDS: WARFARIN SOD 5 MG TAB PO (17:57)
[2017-04-06] MEDS: SPIRONOLACTONE 12.5MG PER 1/2 TABLET PO (17:57)
[2017-04-06] MEDS: FUROSEMIDE injection 250 MG in D5W 225 ML IV (17:57)
[2017-04-06] MEDS: FENOFIBRATE 48 MG TAB (TRICOR) PO (22:07)
[2017-04-06] MEDS: PANTOPRAZOLE 40MG TAB (PROTONIX) PO (22:07)
[2017-04-06] MEDS: MONTELUKAST 10 MG TAB PO (22:07)
[2017-04-07 05:28] LABS: INR 2.79; PROTHROMBIN TIME 30.6 SECONDS (12.4-14.5)
[2017-04-07 05:33] LABS: HEMATOCRIT 27.3 % (36.0-47.0); HEMOGLOBIN 8.6 g/dl (12.0-16.0); MEAN CORPUSCULAR HEMOGLOBIN 28.2 pg (27.0-33.0); MEAN CORPUSCULAR HGB CONC 31.5 g/dl (32.0-36.5); MEAN CORPUSCULAR VOLUME 89.5 fl (80.0-96.0); PLATELET COUNT, AUTOMATED 114 10^3/uL (150-450); RED BLOOD COUNT 3.05 10^6/uL (4.00-5.40); RED CELL DISTRIBUTION WIDTH 18.4 % (11.5-14.5); WHITE BLOOD COUNT 4.4 10^3/uL (4.0-10.0)
[2017-04-07 05:45] LABS: ANION GAP 7 MEQ/L (8-16); BLOOD UREA NITROGEN 30 MG/DL (7-18); CALCIUM LEVEL 8.5 MG/DL (8.8-10.2); CARBON DIOXIDE LEVEL 32 MEQ/L (21-32); CHLORIDE LEVEL 97 MEQ/L (98-107); CREATININE FOR GFR 1.35 MG/DL (0.55-1.30); GLOMERULAR FILTRATION RATE 42.4 (>45); GLUCOSE, FASTING 87 MG/DL (70-100); MAGNESIUM LEVEL 2.1 MG/DL (1.8-2.4); PHOSPHORUS LEVEL 2.6 MG/DL (2.5-4.9); POTASSIUM SERUM 3.7 MEQ/L (3.5-5.1); SODIUM LEVEL 136 MEQ/L (136-145)
[2017-04-07] MEDS ORDERED: LEVOTHYROXINE 150MCG TABLET (0.15MG) As Ordered (06:13)
[2017-04-07] MEDS ORDERED: LEVOTHYROXINE 25MCG TABLET (0.025MG) As Ordered (06:14)
[2017-04-07] MEDS: LEVOTHYROXINE 150MCG TABLET (0.15MG) PO (06:21)
[2017-04-07] MEDS: LEVOTHYROXINE 25MCG TABLET (0.025MG) PO (06:21)
[2017-04-07] MEDS: ADVAIR HFA 45/21MCG INHALER INH ×2 (07:30→20:16)
[2017-04-07] MEDS: ALLOPURINOL 100 MG TAB PO (08:05)
[2017-04-07] MEDS: FOLIC ACID 1 MG TAB PO (08:05)
[2017-04-07] MEDS: TORSEMIDE (DEMADEX) 50 MG PER 1/2 TAB PO ×2 (08:05→17:16)
[2017-04-07] MEDS: METHADONE 5 MG TAB (S0109) PO ×2 (08:05→20:53)
[2017-04-07] MEDS: SPIRONOLACTONE 25 MG TAB PO ×2 (08:06→17:16)
[2017-04-07] MEDS: MAGNESIUM OXIDE 400 MG TAB (MAG-OX) PO (08:06)
[2017-04-07] MEDS: DIGOXIN 0.125 MG TAB PO (08:07)
[2017-04-07] MEDS: SERTRALINE 100 MG TAB PO (08:10)
[2017-04-07] MEDS: ATENOLOL 50 MG TAB PO (08:10)
[2017-04-07] MEDS: ASPIRIN 81 MG ENTERIC TAB PO (08:11)
[2017-04-07] MEDS: clonazePAM 0.5 MG TAB PO ×4 (08:12→20:52)
[2017-04-07] MEDS: NORCO, ANEXSIA 5/325MG TABLET (HYDROcodone/ACETAMINOPHEN) PO (12:02)
[2017-04-07] MEDS: WARFARIN SOD 5 MG TAB PO (17:17)
[2017-04-07] MEDS: PANTOPRAZOLE 40MG TAB (PROTONIX) PO (20:52)
[2017-04-07] MEDS: MONTELUKAST 10 MG TAB PO (20:52)
[2017-04-07] MEDS: FENOFIBRATE 48 MG TAB (TRICOR) PO (20:52)
[2017-04-08 05:38] LABS: HEMOGLOBIN 8.8 g/dl (12.0-16.0); MEAN CORPUSCULAR HEMOGLOBIN 27.9 pg (27.0-33.0); MEAN CORPUSCULAR HGB CONC 31.4 g/dl (32.0-36.5); MEAN CORPUSCULAR VOLUME 88.9 fl (80.0-96.0); PLATELET COUNT, AUTOMATED 131 10^3/uL (150-450); RED BLOOD COUNT 3.15 10^6/uL (4.00-5.40); RED CELL DISTRIBUTION WIDTH 18.5 % (11.5-14.5); WHITE BLOOD COUNT 4.9 10^3/uL (4.0-10.0)
[2017-04-08 06:00] LABS: INR 3.09; PROTHROMBIN TIME 33.3 SECONDS (12.4-14.5)
[2017-04-08 06:06] LABS: ALBUMIN 3.1 GM/DL (3.2-5.2); ANION GAP 6 MEQ/L (8-16); BLOOD UREA NITROGEN 26 MG/DL (7-18); CALCIUM LEVEL 8.7 MG/DL (8.8-10.2); CARBON DIOXIDE LEVEL 34 MEQ/L (21-32); CHLORIDE LEVEL 96 MEQ/L (98-107); DIGOXIN LEVEL 1.1 NG/ML (0.5-2.0); FERRITIN 57 NG/ML (8-252); GLOMERULAR FILTRATION RATE 44.3 (>45); GLUCOSE, FASTING 94 MG/DL (70-100); IRON (FE) 30 UG/DL (50-170); MAGNESIUM LEVEL 2.2 MG/DL (1.8-2.4); PERCENT SATURATION 5.8 % (13.2-45.0); PHOSPHORUS LEVEL 2.6 MG/DL (2.5-4.9); POTASSIUM SERUM 3.6 MEQ/L (3.5-5.1); SODIUM LEVEL 136 MEQ/L (136-145); TOTAL IRON BINDING CAPACITY 514 UG/DL (250-450)
[2017-04-08] MEDS: LEVOTHYROXINE 25MCG TABLET (0.025MG) PO (06:09)
[2017-04-08] MEDS: LEVOTHYROXINE 150MCG TABLET (0.15MG) PO (06:10)
[2017-04-08] MEDS: ADVAIR HFA 45/21MCG INHALER INH ×2 (08:19→20:49)
[2017-04-08] MEDS: FOLIC ACID 1 MG TAB PO (08:22)
[2017-04-08] MEDS: MAGNESIUM OXIDE 400 MG TAB (MAG-OX) PO (08:22)
[2017-04-08] MEDS: ASPIRIN 81 MG ENTERIC TAB PO (08:22)
[2017-04-08] MEDS: METHADONE 5 MG TAB (S0109) PO ×2 (08:22→20:23)
[2017-04-08] MEDS: ALLOPURINOL 100 MG TAB PO (08:23)
[2017-04-08] MEDS: DIGOXIN 0.125 MG TAB PO (08:23)
[2017-04-08] MEDS: SERTRALINE 100 MG TAB PO (08:23)
[2017-04-08] MEDS: ATENOLOL 25 MG TAB PO ×2 (08:23→20:23)
[2017-04-08] MEDS: SPIRONOLACTONE 25 MG TAB PO ×2 (08:23→17:33)
[2017-04-08] MEDS: clonazePAM 0.5 MG TAB PO ×4 (08:23→20:22)
[2017-04-08] MEDS: TORSEMIDE (DEMADEX) 50 MG PER 1/2 TAB PO ×2 (08:24→17:33)
[2017-04-08] MEDS: IRON SUCROSE 100MG 5ML VIAL (J1756 PER 1MG) IV (09:00)
[2017-04-08] MEDS ORDERED: SLF 3 ML SYR IV (10:45)
[2017-04-08] MEDS: IRON SUCROSE 25 MG in NS 50 ML IV (10:57)
[2017-04-08] MEDS: SLF 3 ML SYR IV ×2 (12:31→20:24)
[2017-04-08] MEDS: IRON SUCROSE 375 MG in NS 250 ML IV (12:31)
[2017-04-08] MEDS: WARFARIN SOD 4 MG TAB PO (17:33)
[2017-04-08] MEDS: PANTOPRAZOLE 40MG TAB (PROTONIX) PO (20:22)
[2017-04-08] MEDS: MONTELUKAST 10 MG TAB PO (20:22)
[2017-04-08] MEDS: FENOFIBRATE 48 MG TAB (TRICOR) PO (20:22)
[2017-04-09] MEDS: LEVOTHYROXINE 25MCG TABLET (0.025MG) PO (05:48)
[2017-04-09] MEDS: LEVOTHYROXINE 150MCG TABLET (0.15MG) PO (05:48)
[2017-04-09] MEDS: SLF 3 ML SYR IV (05:49)
[2017-04-09] MEDS: NORCO, ANEXSIA 5/325MG TABLET (HYDROcodone/ACETAMINOPHEN) PO (05:53)
[2017-04-09] MEDS: ADVAIR HFA 45/21MCG INHALER INH (08:10)
[2017-04-09] MEDS: ATENOLOL 25 MG TAB PO ×2 (09:00→09:12)
[2017-04-09] MEDS: ASPIRIN 81 MG ENTERIC TAB PO (09:11)
[2017-04-09] MEDS: TORSEMIDE (DEMADEX) 50 MG PER 1/2 TAB PO (09:11)
[2017-04-09] MEDS: MAGNESIUM OXIDE 400 MG TAB (MAG-OX) PO (09:11)
[2017-04-09] MEDS: SERTRALINE 100 MG TAB PO (09:11)
[2017-04-09] MEDS: METHADONE 5 MG TAB (S0109) PO (09:11)
[2017-04-09] MEDS: DIGOXIN 0.125 MG TAB PO (09:11)
[2017-04-09] MEDS: clonazePAM 0.5 MG TAB PO (09:11)
[2017-04-09] MEDS: FOLIC ACID 1 MG TAB PO (09:12)
[2017-04-09] MEDS: SPIRONOLACTONE 25 MG TAB PO (09:12)
[2017-04-09] MEDS: ALLOPURINOL 100 MG TAB PO (09:12)
[2017-04-09] MEDS: VITAMIN D 50,000 UNITS CAPSULE (ERGOCALCIFEROL 1.25MG) PO (09:12)
[2017-04-09 10:55] LABS: ANION GAP 6 MEQ/L (8-16); BLOOD UREA NITROGEN 24 MG/DL (7-18); CALCIUM LEVEL 8.9 MG/DL (8.8-10.2); CARBON DIOXIDE LEVEL 37 MEQ/L (21-32); CHLORIDE LEVEL 94 MEQ/L (98-107); CREATININE FOR GFR 1.31 MG/DL (0.55-1.30); GLOMERULAR FILTRATION RATE 43.9 (>45); GLUCOSE, FASTING 84 MG/DL (70-100); POTASSIUM SERUM 3.4 MEQ/L (3.5-5.1); SODIUM LEVEL 137 MEQ/L (136-145)
[2017-04-09] MEDS ORDERED: POTASSIUM CHLORIDE 10% LIQ 20 MEQ/15 ML UDC PO (12:00)
[2017-04-10] MEDS ORDERED: ATENOLOL 50 MG TAB PO (09:00)
[2017-04-11] MEDS ORDERED: DIGOXIN 0.125 MG TAB PO (09:00)
== END 2017-04-09 14:44 | disposition home or self-care (01) | DRG 314 ==
LOC: M ICU 04-02 11:29 → M PCU 04-03 19:30 → M ED 16:01 → M ED INP 20:15
DX: I27.29 Other secondary pulmonary hypertension (principal); I50.33 Acute on chronic diastolic (congestive) heart failure; N18.4 Chronic kidney disease, stage 4 (severe); N17.9 Acute kidney failure, unspecified; I13.0 Hypertensive heart and chronic kidney disease with heart failure and stage 1 through stage 4 chronic kidney disease, or unspecified chronic kidney disease; I48.1 Persistent atrial fibrillation; J44.9 Chronic obstructive pulmonary disease, unspecified; E78.5 Hyperlipidemia, unspecified; I48.2 Chronic atrial fibrillation; Z66 Do not resuscitate; D50.9 Iron deficiency anemia, unspecified; F41.9 Anxiety disorder, unspecified; I49.5 Sick sinus syndrome; G89.29 Other chronic pain; I50.84 End stage heart failure; I87.2 Venous insufficiency (chronic) (peripheral); E89.0 Postprocedural hypothyroidism; M10.9 Gout, unspecified; F32.9 Major depressive disorder, single episode, unspecified; Z95.2 Presence of prosthetic heart valve; Z79.82 Long term (current) use of aspirin; Z87.891 Personal history of nicotine dependence; Z79.01 Long term (current) use of anticoagulants

== ENCOUNTER → 2017-04-30 | Outpatient (REF) ==
[2017-04-30 13:38] LABS: INR 1.25
== END ==
LOC: M LAB REF 12:32
DX: Z79.01 Long term (current) use of anticoagulants (principal); I34.2 Nonrheumatic mitral (valve) stenosis

== ENCOUNTER → 2017-08-23 | Outpatient (REF) | payer MEDICARE ==
[2017-08-23 17:41] LABS: HEMOGLOBIN 10.7 g/dl (12.0-15.5); MEAN CORPUSCULAR HEMOGLOBIN 27.8 pg (27.0-33.0); MEAN CORPUSCULAR HGB CONC 32.4 g/dl (32.0-36.5); MEAN CORPUSCULAR VOLUME 85.7 fl (80.0-96.0); PLATELET COUNT, AUTOMATED 188 10^3/uL (150-450); RED BLOOD COUNT 3.85 10^6/uL (4.00-5.40); RED CELL DISTRIBUTION WIDTH 16.6 % (11.5-14.5); WHITE BLOOD COUNT 4.2 10^3/uL (4.0-10.0)
[2017-08-23 18:30] LABS: ALBUMIN 4.3 GM/DL (3.2-5.2); ALBUMIN/GLOBULIN RATIO 1.43 (1.00-1.93); ALKALINE PHOSPHATASE 129 U/L (45-117); ALT/SGPT 21 U/L (12-78); ANION GAP 9 MEQ/L (8-16); AST/SGOT 39 U/L (7-37); BILIRUBIN,TOTAL 1.2 MG/DL (0.2-1.0); BLOOD UREA NITROGEN 11 MG/DL (7-18); CARBON DIOXIDE LEVEL 31 MEQ/L (21-32); CHLORIDE LEVEL 94 MEQ/L (98-107); CREATININE FOR GFR 1.07 MG/DL (0.55-1.30); DIGOXIN LEVEL 0.6 NG/ML (0.5-2.0); GLOMERULAR FILTRATION RATE 55.5 (>45); GLUCOSE, FASTING 59 MG/DL (70-100); POTASSIUM SERUM 4.1 MEQ/L (3.5-5.1); SODIUM LEVEL 134 MEQ/L (136-145); TOTAL PROTEIN 7.3 GM/DL (6.4-8.2)
== END ==
LOC: M LAB REF 16:22
DX: I27.81 Cor pulmonale (chronic) (principal); Z79.899 Other long term (current) drug therapy; E03.9 Hypothyroidism, unspecified
CPT/HCPCS: 80162

== ENCOUNTER → 2017-08-29 | Outpatient (REF) | payer MEDICARE ==
[2017-08-29 19:25] LABS: APPEARANCE, URINE CLEAR (CLEAR); BACTERIA, URINE AUTO 2+ (NEGATIVE); BILIRUBIN, URINE AUTO NEGATIVE (NEGATIVE); BLOOD, URINE BLOOD NEGATIVE (NEGATIVE); COLOR, URINE YELLOW (YELLOW); GLUCOSE, URINE (UA) AUTO NEGATIVE (NEGATIVE); KETONE, URINE AUTO NEGATIVE (NEGATIVE); LEUKOCYTE ESTERASE, URINE AUTO 3+ (NEGATIVE); NITRITE, URINE AUTO NEGATIVE (NEGATIVE); PROTEIN, URINE AUTO NEGATIVE (NEGATIVE); RBC, URINE AUTO 0 /HPF (0-3); SPECIFIC GRAVITY URINE AUTO 1.009 (1.002-1.035); SQUAMOUS EPITHELIAL CELL UR AU 2 /HPF (0-6); UROBILINOGEN, URINE AUTO 0.2 mg/dL (0.0-2.0); WBC, URINE AUTO 19 /HPF (0-3)
== END ==
LOC: M SFHCCLAY 16:47
DX: N30.00 Acute cystitis without hematuria (principal)
CPT/HCPCS: 81001

== ENCOUNTER → 2018-01-15 | Outpatient (REF) | payer MEDICARE ==
[2018-01-15 14:24] LABS: AMORPHOUS SEDIMENT SMALL (NEGATIVE); APPEARANCE, URINE HAZY (CLEAR); BACTERIA, URINE AUTO 1+ (NEGATIVE); BILIRUBIN, URINE AUTO NEGATIVE (NEGATIVE); BLOOD, URINE BLOOD 1+ (NEGATIVE); COLOR, URINE YELLOW (YELLOW); GLUCOSE, URINE (UA) AUTO NEGATIVE (NEGATIVE); KETONE, URINE AUTO NEGATIVE (NEGATIVE); LEUKOCYTE ESTERASE, URINE AUTO 3+ (NEGATIVE); NITRITE, URINE AUTO NEGATIVE (NEGATIVE); PROTEIN, URINE AUTO NEGATIVE (NEGATIVE); RBC, URINE AUTO 17 /HPF (0-3); SPECIFIC GRAVITY URINE AUTO 1.009 (1.002-1.035); SQUAMOUS EPITHELIAL CELL UR AU 0 /HPF (0-6); UROBILINOGEN, URINE AUTO 0.2 mg/dL (0.0-2.0); WBC, URINE AUTO 102 /HPF (0-3); YEAST LIKE CELL URINE AUTO SMALL
== END ==
LOC: M LAB REF 13:59
DX: N39.0 Urinary tract infection, site not specified (principal)
CPT/HCPCS: 81001

== ENCOUNTER → 2018-03-06 | Outpatient (REF) ==
[~2018-03-06] MED LIST changes: +ADV100INH INH; +ALDA25TA2 PO; +ASPI81TA24 PO; +ATEN50TA2 PO; -BUME2TAB PO; +BUME2TAB3 PO; +DIGO0.12 PO; +DIPH25CA PO; +FOLI1TAB11 PO; -FOLI1TAB4 PO; +HALO1TA; +HALO1TA PO; +HYDR-3713 PO; +KLOR10TA76 PO; +MAGN400T5 PO; +MOME50SP; +NEXI40CA PO; +POTA20PW PO; +SPIR-10 PO; -SPIR25TA2 PO; +SYNT125T PO; +TAB-TAB PO; +TORS10TA3 PO; +TORS20TA2; +TORS20TA2 PO; +TRAZ-163; +TRAZ10TA PO; +VENTAER INH; -VITA1CAP40 PO; +VITA50005 PO; +WARF4TAB51 PO
[2018-03-06 11:52] LABS: CALCIUM LEVEL 8.8 MG/DL (8.8-10.2); CREATININE FOR GFR 1.35 MG/DL (0.55-1.30); GLOMERULAR FILTRATION RATE 42.3 (>45); POTASSIUM SERUM 3.5 MEQ/L (3.5-5.1)
== END ==
LOC: M LAB REF 11:03
PROVIDERS: ATTEND Family Medicine
DX: Z00.00 Encounter for general adult medical examination without abnormal findings (principal)

== ENCOUNTER → 2018-03-27 | Outpatient (REF) ==
[2018-03-27 12:13] LABS: FREE T4 0.89 NG/DL (0.76-1.46); THYROXINE (T4) 8.4 UG/DL (4.5-12.0)
[2018-03-27 13:07] LABS: TOTAL T3 32.1 NG/DL (60.0-181.0)
[2018-03-27 14:01] LABS: FREE T3 0.9 PG/ML (2.2-4.0)
== END ==
LOC: M LAB REF 10:06
PROVIDERS: ATTEND Family Medicine
DX: I48.2 Chronic atrial fibrillation (principal); I13.0 Hypertensive heart and chronic kidney disease with heart failure and stage 1 through stage 4 chronic kidney disease, or unspecified chronic kidney disease; I50.813 Acute on chronic right heart failure; I27.81 Cor pulmonale (chronic)